=== PATIENT | female | born 1995 | race Caucasian/White ===

== ENCOUNTER 2017-02-14 00:51 | Emergency (ER) | payer BC ==
[~2017-02-14] VITALS: Ht 157.5 cm; Wt 63.5 kg
[2017-02-14 01:20] VITALS: BP 113/67
--- NOTE | 2017-02-14 01:39 | ED.ADGEN ---
Past Medical History Past Medical History: No Pertinent History Past Surgical History: Cholecystectomy Additional Past Surgical Histo: wisdom teeth Alcohol Use: Occasionally Drug Use: None Adult General Chief Complaint Chief Complaint: CLAVICLE INJURY HPI HPI Patient is a 22 year old woman, with no significant past no history, who presents to the emergency department with a complaint of left clavicle pain, with pain that shoots into the left arm. Patient states that at approximately 10 :30 tonight, she left forehead, and struck her clavicle against her significant other's knee. She states that she mainly spirits pain and some swelling, pain she describes as sharp and radiating into her left shoulder and side, states she is moving her upper extremity without issue, and did not strike her upper extremity, her head or neck. She states that she did use ice at home, did not take any medication. She denies any weakness, is complaining of tingling that does extend into the arm and then down to the fingers. She denies any other injuries, any previous injuries, any chest pain, shortness breath or other complaints. Review of Systems Review of Systems Constitutional: Denies fever or chills. [] Eyes: Denies change in visual acuity. [] HENT: Denies nasal congestion or sore throat. [] Respiratory: Denies cough or shortness of breath. [] Cardiovascular: Denies chest pain or edema. [] GI: Denies abdominal pain, nausea, vomiting, bloody stools or diarrhea. [] : Denies dysuria. [] Musculoskeletal: Denies back pain, complaining of pain in the left clavicle, with shooting pains and tingling extending into the left upper extremity Integument: Denies rash. [] Neurologic: Denies headache, focal weakness or sensory changes. [] Endocrine: Denies polyuria or polydipsia. [] Lymphatic: Denies swollen glands. [] Psychiatric: Denies depression or anxiety. [] Current Medications Current Medications Current Medications Medications (Trade) Dose Ordered Sig/Yudy Start Time Stop Time Status Last Admin Dose Admin Naproxen (Naprosyn) 500 mg 1X ONCE 02/14/17 02:30 02/14/17 02:31 02/14/17 02:16 500 MG Allergies Allergies Allergies Coded Allergies Type Severity Reaction Last Updated Verified No Known Drug Allergies 08/21/15 No Physical Exam Physical Exam Constitutional: Well developed, well nourished, no acute distress, non-toxic appearance. [] HENT: Normocephalic, atraumatic, bilateral external ears normal, oropharynx moist, no oral exudates, nose normal. [] Eyes: PERRLA, EOMI, conjunctiva normal, no discharge. [] Neck: Normal range of motion, no midline or paraspinal tenderness, supple, no stridor. [] Cardiovascular:Heart rate regular rhythm, no murmur, S1, S2, no rubs or gallops. [] Lungs & Thorax: Bilateral breath sounds clear to auscultation, no wheezing, rhonchi, rales. No chest or crepitus or tenderness. Patient with ecchymosis noted in the midclavicular region on the left, tenderness to palpation over this area. [] Abdomen: Bowel sounds normal, soft, no tenderness, no rebound, rigidity, no guarding, no masses, no pulsatile masses. [] Skin: Warm, dry, no erythema, no rash. [] Back: No midline or paraspinal tenderness, no scapular, no CVA tenderness. [] Extremities: No tenderness, no cyanosis, no clubbing, ROM intact, no edema. [] Full range of motion without difficulty or pain. No bony point tenderness in the left upper extremity. Neurologic: Alert and oriented X 3, normal motor function, normal sensory function, no focal deficits noted. [] Psychologic: Affect normal, judgement normal, mood normal. [] Current Patient Data Vital Signs Vital Signs Date Time Temp Pulse Resp B/P (MAP) Pulse Ox O2 Delivery O2 Flow Rate FiO2 02/14/17 01:20 98.3 104 11 98 Room Air 98.3 Lab Values Laboratory Tests Test 02/14/17 01:18 POC Urine HCG, Qualitative Hcg negative (Negative) EKG EKG Not indicated.[] Radiology/Procedures Radiology/Procedures X-ray: Bilateral clavicles: No fracture or subluxation identified, no soft tissue or bony abnormalities. As interpreted by me. Course & Med Decision Making Course & Med Decision Making Pertinent Labs and Imaging studies reviewed. (See chart for details) Patient with ecchymosis noted over the midclavicular region, is tender in this area, but no crepitus or deformity identified. X-rays obtained of the clavicles , does not reveal any evidence of bony abnormalities. As stated patient has full range of motion of the upper extremity, no other abnormalities identified, I did discuss with patient that symptoms are consistent with a contusion, they may be causing this "stinging" sensation along the upper extremity, with no evidence of underlying abnormalities. Recommend ice, rest, and use of anti- inflammatory medications, patient was given naproxen in the ED. We discussed concerning symptoms that prompt return to the emergency department, and follow- up with her primary care provider. Patient voiced understanding and agreement, discharged home in stable condition with instructions and precautions as stated. Dragon Disclaimer Dragon Disclaimer This electronic medical record was generated, in whole or in part, using a voice recognition dictation system. Departure Impression: Primary Impression: Clavicle pain Disposition: HOME, SELF-CARE Condition: IMPROVED DANA CAREY DO Feb 14, 2017 01:39
[2017-02-14] MEDS ORDERED: NAPROXEN 500 MG TABLET PO ONE (02:30)
--- NOTE | 2017-02-14 08:01 | RAD ---
Two-view study of clavicles bilateral exam History: Trauma and pain. Left clavicle: No acute fracture or osteolytic process or AC joint separation is seen. Right clavicle: No acute fracture or osteolytic process or AC joint separation is seen. IMPRESSION: No acute fracture.
== END 2017-02-14 02:34 | disposition home or self-care (01) ==
LOC: ER 00:51
DX: S40.012A Contusion of left shoulder, initial encounter (principal); W50.0XXA Accidental hit or strike by another person, initial encounter; Y93.89 Activity, other specified; Y92.89 Other specified places as the place of occurrence of the external cause; Y99.8 Other external cause status
CPT/HCPCS: 73000; 81025; 99284

== ENCOUNTER → 2017-05-26 | Day surgery (SDC) | payer OTHER, BC ==
[~2017-05-26] MED LIST: HYDROmorphone 2 MG/ML VIAL IV; LIDOCAINE 1% PF 2 ML VIAL. ID; LIDOCAINE 2% 100 MG/5 ML SYRINGE.; MORPHINE SULFATE 2 MG/ML DISP.SYRIN. IV; ONDANSETRON PF 4 MG/2 ML VIAL. IV; PROCHLORPERAZINE 10 MG/2 ML VIAL. IV; PROPOFOL 40 ML IV; fentaNYL PF VIAL 100 MCG/2 ML VIAL IV
[2017-05-26] MEDS: IV RINGERS,LACTATED 1000ML 1,000 ML IV (06:37)
[2017-05-26 06:51] LABS: NEG OBC UR NEG; POS OBC UR POS; U PREG PATIENT NEGATIVE (NEG)
== END | disposition home or self-care (01) ==
LOC: ENDOS 05:55
DX: K31.89 Other diseases of stomach and duodenum (principal); K29.50 Unspecified chronic gastritis without bleeding; F41.9 Anxiety disorder, unspecified; Z90.49 Acquired absence of other specified parts of digestive tract; Z88.6 Allergy status to analgesic agent
CPT/HCPCS: 43239; 81025; 88305; J2704

== ENCOUNTER → 2017-06-11 | Outpatient (CLI) | payer OTHER | END | disposition home or self-care (01) | LOC: NM 10:53 | DX: K30 Functional dyspepsia (principal); R11.0 Nausea | CPT/HCPCS: 78264; A9541 ==

== ENCOUNTER 2017-07-19 08:35 | Emergency (ER) | payer OTHER, BC ==
[2017-07-19] MEDS: ONDANSETRON ODT 4 MG TAB.RAPDIS. PO (09:04)
== END 2017-07-19 10:28 | disposition home or self-care (01) ==
LOC: ER 08:35
DX: R05 Cough (principal); R11.10 Vomiting, unspecified
CPT/HCPCS: 71046; 99284; Q0162

== ENCOUNTER → 2018-02-17 | Outpatient (CLI) | payer OTHER ==
[2017-07-19 08:40] VITALS: BP 106/61
[~2018-02-17] MED LIST changes: -HYDROmorphone 2 MG/ML VIAL IV; -LIDOCAINE 1% PF 2 ML VIAL. ID; -LIDOCAINE 2% 100 MG/5 ML SYRINGE.; +MELA3TAB2 PO; -MORPHINE SULFATE 2 MG/ML DISP.SYRIN. IV; +OMEP20TA8 PO; -ONDANSETRON PF 4 MG/2 ML VIAL. IV; -PROCHLORPERAZINE 10 MG/2 ML VIAL. IV; -PROPOFOL 40 ML IV; -fentaNYL PF VIAL 100 MCG/2 ML VIAL IV
--- NOTE | 2018-02-17 13:11 | RAD ---
MRCP compared to CT scan of the abdomen and pelvis dated July 06, 2005 for worsening abdominal pain status post cholecystectomy 2 years ago. TECHNIQUE: Multiplanar multisequence MR imaging of the abdomen is performed including extreme T2-weighted MR cholangiogram and 3-D volume rendered images of the biliary tree. FINDINGS: There are postsurgical changes of prior cholecystectomy. No intra or extrahepatic biliary ductal dilatation is seen. No biliary filling defects are identified. There is a tiny simple cyst within the left lobe of the liver, measuring less than 1 cm. No other liver parenchymal abnormality is are identified. No signal loss within the hepatic parenchyma with out of phase imaging. The pancreas is normal in appearance. No pancreatic ductal dilatation is seen. The bilateral adrenal glands and bilateral kidneys are also normal in appearance. Spleen is normal. A small accessory splenule is seen anteriorly. Visualized hollow viscus structures are grossly unremarkable. No pathologic lymphadenopathy is seen. No free or loculated fluid collections are present. No soft tissue or osseous abnormalities are seen. IMPRESSION: 1. Postsurgical changes of cholecystectomy, with no discernible abdominal pathology. 2. Small accessory splenule. Electronically signed by: Jose Vizcaino MD (02/17/2018 1:07 PM) [facility]
== END | disposition home or self-care (01) ==
LOC: MRI 07:52
PROVIDERS: ATTEND Internal Medicine Gastroenterology
DX: D73.89 Other diseases of spleen (principal); Z98.890 Other specified postprocedural states; Z90.49 Acquired absence of other specified parts of digestive tract
CPT/HCPCS: 74181

== ENCOUNTER 2018-03-07 17:15 | Emergency (ER) | payer OTHER ==
[~2018-03-07] VITALS: Ht 157.5 cm; Wt 52.2 kg
[2018-03-07 18:43] LABS: BILIRUBIN,URINE NEGATIVE (NEG); CLARITY,URINE CLEAR; COLOR,URINE YELLOW; NITRITE,URINE NEGATIVE (NEG); PH,URINE 6.5; PROTEIN,URINE NEGATIVE (NEG-TRACE)
[2018-03-07 18:46] LABS: BASO % 1 % (0-3); EOS # 0.1 x10^3/uL (0.0-0.7); EOS % 1 % (0-3); HEMATOCRIT 36.5 % (36.0-47.0); HEMOGLOBIN 12.5 g/dL (12.0-15.5); LYMPH % 23 % (24-48); MEAN CORPUSCULAR HEMOGLOBIN 31 pg (25-35); MEAN CORPUSCULAR HGB CONC 34 g/dL (31-37); MEAN CORPUSCULAR VOLUME 91 fL (79-100); MONO # 0.6 x10^3/uL (0.0-1.1); MONO % 13 % (0-9); NEUT # 2.7 x10^3uL (1.8-7.7); NEUT % 62 % (31-73); PLATELET COUNT 211 x10^3/uL (140-400); RED BLOOD COUNT 4.03 x10^6/uL (3.50-5.40); RED CELL DISTRIBUTION WIDTH 12.6 % (11.5-14.5); WHITE BLOOD COUNT 4.3 x10^3/uL (4.0-11.0)
[2018-03-07 18:53] LABS: BACTERIA,URINE MODERATE /HPF (0-FEW); RBC,URINE OCC /HPF (0-2); SQUAMOUS EPITHELIAL CELL,UR MOD /LPF; WBC,URINE OCC /HPF (0-4); YEAST,URINE PRESENT /HPF
[2018-03-07 18:59] LABS: CALCIUM 9.1 mg/dL (8.5-10.1); CREATININE 0.6 mg/dL (0.6-1.0); GFR 121.8; POTASSIUM 3.8 mmol/L (3.5-5.1)
[2018-03-07] MEDS ORDERED: fentaNYL PF VIAL 100 MCG/2 ML VIAL IV ONE ×2 (19:00→20:15)
[2018-03-07] MEDS ORDERED: DICYCLOMINE 20 MG/2 ML AMPUL. IM ONE (19:00)
[2018-03-07] MEDS ORDERED: ONDANSETRON PF 4 MG/2 ML VIAL. IV ONE (19:00)
[2018-03-07 19:03] LABS: ALBUMIN 3.7 g/dL (3.4-5.0); ALBUMIN/GLOBULIN RATIO 1.2 (1.0-1.7); TOTAL BILIRUBIN 0.1 mg/dL (0.2-1.0); TOTAL PROTEIN 6.9 g/dL (6.4-8.2)
[2018-03-07] MEDS ORDERED: DICY10CA3 PO (19:58)
--- NOTE | 2018-03-07 19:58 | PHYS DOC ---
Past Medical History Past Medical History: Other Additional Past Medical Histor: gastroporesis Past Surgical History: Cholecystectomy Additional Past Surgical Histo: wisdom teeth Alcohol Use: Rarely Drug Use: None Adult General Chief Complaint Chief Complaint: ABDOMINAL PAIN HPI HPI 23-year-old female presents to ER with complaints of upper abdominal pain which started around 4 PM today. Patient reports she has history of chronic abdominal pain due to gastroparesis. Patient reports she has had intermittent nausea today denying any vomiting episodes. Patient denies fever, urinary symptoms, or vaginal symptoms. Patient reports she has had diarrhea today but reports this is chronic in nature with no acute changes. Patient reports she had an ERCP and is scheduled for colonoscopy on 03/23/18 her ongoing abdominal pain and issues. Review of Systems Review of Systems Constitutional: Denies fever or chills. Denies fatigue Eyes: Denies change in visual acuity, redness, or eye pain [] HENT: Denies nasal congestion or sore throat [] Respiratory: Denies cough or shortness of breath [] Cardiovascular: Denies CP/palpitations GI: Denies vomiting. Reports diarrhea with intermittent blood in stools- reports this is chronic with no acute changes. Reports upper abd pain : Denies dysuria or hematuria [] Musculoskeletal: Denies back pain or joint pain [] Integument: Denies rash or skin lesions [] Neurologic: Denies headache, focal weakness or sensory changes. Denies dizziness /lightheadedness All other systems were reviewed and found to be within normal limits, except as documented in this note. Current Medications Current Medications Current Medications Medications (Trade) Dose Ordered Sig/Yudy Start Time Stop Time Status Last Admin Dose Admin Dicyclomine HCl (Bentyl) 20 mg 1X ONCE 03/07/18 19:00 03/07/18 19:01 DC 03/07/18 18:55 20 MG Fentanyl Citrate (Fentanyl 2ml Vial) 25 mcg 1X ONCE 03/07/18 20:15 03/07/18 20:16 DC 03/07/18 20:09 25 MCG Ondansetron HCl (Zofran) 4 mg 1X ONCE 03/07/18 19:00 03/07/18 19:01 DC 03/07/18 18:57 4 MG Allergies Allergies Allergies Coded Allergies Type Severity Reaction Last Updated Verified morphine Allergy Intermediate 05/26/17 Yes Physical Exam Physical Exam Constitutional: Well developed, well nourished, no acute distress, non-toxic appearance. [] HENT: Normocephalic, atraumatic, mucous membranes pink/moist, nose normal. [] Eyes: pupils equal, conjunctiva normal, no discharge. [] Neck: Normal range of motion, no tenderness, supple Cardiovascular:Heart rate regular rhythm, no murmur [] Lungs & Thorax: Bilateral breath sounds clear to auscultation. Resp. equal/ nonlabored Abdomen: Bowel sounds normal, soft- no rigidity or distention, diffuse tenderness on palpation in upper bilateral sides of abdomen, no masses, no pulsatile masses. No rebound tenderness Skin: Warm, dry, no erythema, no rash. [] Back: No tenderness, no CVA tenderness. [] Extremities: No tenderness, no cyanosis, no clubbing, ROM intact, no edema. [] Neurologic: Alert and oriented X 3, normal motor function, normal sensory function, no focal deficits noted. [] Psychologic: Affect normal, judgement normal, mood normal. [] Current Patient Data Vital Signs Vital Signs Date Time Temp Pulse Resp B/P (MAP) Pulse Ox O2 Delivery O2 Flow Rate FiO2 03/07/18 20:30 18 97 Room Air 03/07/18 20:00 59 91/57 (68) 03/07/18 17:44 99.5 99.5 Lab Values Laboratory Tests Test 03/07/18 17:55 03/07/18 18:35 03/07/18 19:00 Urine Collection Type Unknown Urine Color Yellow Urine Clarity Clear Urine pH 6.5 Urine Specific [place] 1.025 Urine Protein Negative mg/dL (NEG-TRACE) Urine Glucose (UA) Negative mg/dL (NEG) Urine Ketones (Stick) Negative mg/dL (NEG) Urine Blood Negative (NEG) Urine Nitrite Negative (NEG) Urine Bilirubin Negative (NEG) Urine Urobilinogen Dipstick 1.0 mg/dL (0.2 mg/dL) Urine Leukocyte Esterase Negative (NEG) Urine RBC Occ /HPF (0-2) Urine WBC Occ /HPF (0-4) Urine Squamous Epithelial Cells Mod /LPF Urine Bacteria Moderate /HPF (0-FEW) Urine Mucus Marked /LPF Urine Yeast Present /HPF White Blood Count 4.3 x10^3/uL (4.0-11.0) Red Blood Count 4.03 x10^6/uL (3.50-5.40) Hemoglobin 12.5 g/dL (12.0-15.5) Hematocrit 36.5 % (36.0-47.0) Mean Corpuscular Volume 91 fL (79-100) Mean Corpuscular Hemoglobin 31 pg (25-35) Mean Corpuscular Hemoglobin Concent 34 g/dL (31-37) Red Cell Distribution Width 12.6 % (11.5-14.5) Platelet Count 211 x10^3/uL (140-400) Neutrophils (%) (Auto) 62 % (31-73) Lymphocytes (%) (Auto) 23 % (24-48) L Monocytes (%) (Auto) 13 % (0-9) H Eosinophils (%) (Auto) 1 % (0-3) Basophils (%) (Auto) 1 % (0-3) Neutrophils # (Auto) 2.7 x10^3uL (1.8-7.7) Lymphocytes # (Auto) 1.0 x10^3/uL (1.0-4.8) Monocytes # (Auto) 0.6 x10^3/uL (0.0-1.1) Eosinophils # (Auto) 0.1 x10^3/uL (0.0-0.7) Basophils # (Auto) 0.0 x10^3/uL (0.0-0.2) Sodium Level 139 mmol/L (136-145) Potassium Level 3.8 mmol/L (3.5-5.1) Chloride Level 104 mmol/L (98-107) Carbon Dioxide Level 24 mmol/L (21-32) Anion Gap 11 (6-14) Blood Urea Nitrogen 9 mg/dL (7-20) Creatinine 0.6 mg/dL (0.6-1.0) Estimated GFR (Cockcroft-Gault) 121.8 BUN/Creatinine Ratio 15 (6-20) Glucose Level 96 mg/dL (70-99) Calcium Level 9.1 mg/dL (8.5-10.1) Total Bilirubin 0.1 mg/dL (0.2-1.0) L Aspartate Amino Transferase (AST) 13 U/L (15-37) L Alanine Aminotransferase (ALT) 12 U/L (14-59) L Alkaline Phosphatase 64 U/L (46-116) Total Protein 6.9 g/dL (6.4-8.2) Albumin 3.7 g/dL (3.4-5.0) Albumin/Globulin Ratio 1.2 (1.0-1.7) Lipase 210 U/L (73-393) POC Urine HCG, Qualitative Hcg negative (Negative) Laboratory Tests 03/07/18 18:35 Laboratory Tests 03/07/18 18:35 Microbiology 03/07/18 Urine Culture - Final, Complete 03/07/18 Urine Culture Result 1 (FREDDY) - Final, Complete EKG EKG [] Radiology/Procedures Radiology/Procedures [] Course & Med Decision Making Course & Med Decision Making Pertinent Labs reviewed. (See chart for details) 1944: On re-evaluation pt reports her sxs have improved since receiving tx in ER. Discussed test results with pt and her - WBCs NL at 4.3 no lt shift; lipase 210 NL; UCG neg. and UA unremarkable- negative for ketones/leuks/blood. Discussed with improved sxs plans were for home discharge as pt has had similar pain in past. No imaging done with pt feeling comfortable with this. Pt is in no visible distress and remains nontoxic in appearance. Pt will be provided with Rx for Bentyl and reports she has nausea medication at home. Pt to f/u with Dr. Grayson her GI doctor in next 2-3 days if sxs worsens or with concerns. Discharge instructions discussed and education provided on s&s to return to ER for. Pt requested additional dose of pain medication prior to discharge. Staff Physician Addendum: I was working in the ER during the course of this patient's visit. I was available for consultation as needed, but I was not directly involved in the care of this patient. Dragon Disclaimer Dragon Disclaimer This electronic medical record was generated, in whole or in part, using a voice recognition dictation system. Departure Departure Impression: Primary Impression: Abdominal pain Disposition: 01 HOME, SELF-CARE Condition: STABLE Referrals: RADHA EAGLE MD (PCP) Patient Instructions: Abdominal Pain Additional Instructions: [place] diet for next 1-2 days and avoid spicy/acidic foods. Follow-up with your GI doctor in next 2-3 days if symptoms persist, worsen, or with concerns. Scripts Dicyclomine Hcl (DICYCLOMINE HCL) 10 Mg Capsule 10 MG PO QID PRN for PAIN, #14 CAP 0 Refills Prov: ASHLEY ECHOLS APRN 03/07/18 ASHLEY ECHOLS APRN Mar 07, 2018 19:58 HANNA LEIVA MD Mar 11, 2018 06:31
[2018-03-07 20:00] VITALS: BP 91/57
== END 2018-03-07 20:35 | disposition home or self-care (01) ==
LOC: ER 17:15
DX: G89.29 Other chronic pain (principal); R10.11 Right upper quadrant pain; R10.12 Left upper quadrant pain; K31.84 Gastroparesis; Z90.49 Acquired absence of other specified parts of digestive tract; Z88.5 Allergy status to narcotic agent
CPT/HCPCS: 36415; 80053; 81001; 81025; 83690; 85025; 87086; 96372; 96374; 96375; 96376; 99284; J0500; J2405; J3010

== ENCOUNTER → 2018-03-23 | Day surgery (SDC) | payer OTHER ==
[~2018-03-23] MED LIST changes: +DICY10CA3 PO; +PROC25SU21 RC; +PROPOFOL 40 ML IV ONE; +[UNRECOGNIZED DRUG - CODE] PO
[2018-03-23] MEDS: IV RINGERS,LACTATED 1000ML 1,000 ML IV SCH ×2 (08:10→08:11)
[2018-03-23 09:20] LABS: U PREG PATIENT NEGATIVE (NEG)
[2018-03-23 09:27] VITALS: BP 100/64
--- NOTE | 2018-03-23 11:04 | HP ---
ADMIT DATE: 03/23/2018 HISTORY OF PRESENT ILLNESS: A 23-year-old female with past medical history significant for GERD, gastroparesis, seen with worsening diarrhea and right lower quadrant abdominal pain, previously undergone cholecystectomy for symptomatic cholelithiasis. FAMILY HISTORY: Positive for Crohn disease in multiple family members. Her weight has been stable during this time. No extraintestinal manifestations of IBD are noted. With continued issues, she is here for colonoscopy. PAST MEDICAL HISTORY: Gastroparesis, reflux, diarrhea. ALLERGIES: MORPHINE. MEDICATIONS: Include dicyclomine, erythromycin, melatonin, prochlorperazine. FAMILY AND SOCIAL HISTORY: Significant for Crohn's in multiple family members. She is a social drinker, nonsmoker. PAST SURGICAL HISTORY: Cholecystectomy. REVIEW OF SYSTEMS: Per records. PHYSICAL EXAMINATION: GENERAL: Reveals a well-nourished, well-developed female. VITAL SIGNS: Temperature is 97.6, pulse 94, respirations 20. HEENT: Normocephalic and atraumatic. Pupils and extraocular muscles are not tested. Sclerae are icteric. NECK: Supple. LUNGS: Clear. CARDIOVASCULAR: Reveals an S1, S2 without S3, S4 or appreciable murmur. ABDOMEN: Soft abdomen, normal bowel sounds. Right lower quadrant tenderness to palpation. EXTREMITIES: Reveal no cyanosis, clubbing or edema. IMPRESSION: Right lower quadrant abdominal pain with diarrhea, etiology is to be determined. Differential includes irritable bowel syndrome, inflammatory bowel disease, collagenous colitis among others. Therefore, recommend colonoscopy to further assess. Risks and benefits discussed. The patient is willing to proceed. PAULETTE PRESTON MD DR: JUANITA/dalton JOB#: [id number] / [id number] ecc RECORDS, MEDICAL
--- NOTE | 2018-03-25 18:07 | PATHOLOGY ---
[facility] Accession Number: [id number] . 01 Material submitted: . RANDOM COLON BX . 01 Clinical history: . Abdominal pain . 02 Diagnosis: Colonic mucosa, random colon biopsies: - No significant pathologic abnormalities. . (JPM/at;03/25/2018) QTA/03/25/2018 . 02 Comment: Sections of the random colon biopsy revealed multiple segments of colonic mucosa containing a few mucosal - associated lymphoid aggregates. There is no evidence of a chronic destructive colitis, lymphocytic colitis, or collagenous colitis. . (JPM/at;03/25/2018) . 02 Electronically signed: . Chon Jack MD, Pathologist NPI- [id number] . 01 Gross description: . Received in formalin labeled "Simmons, Fátima, random colon BX," are multiple segments of land soft tissue measuring 1.7 x 0.8 x 0.1 cm in aggregate dimensions. The specimen is filtered and entirely submitted in cassette A1. (TSD; 03/23/2018) TOB/TOB . 02 Pathologist provided ICD-10: R10.9 . 02 CPT . 537486 Specimen Comment: A courtesy copy of this report has been sent to Specimen Comment: [phone], . Specimen Comment: Report sent to / DR EAGLE Performed at: 01 [facility] [address], [place] [id number] MD Gordo Gan MD Phone: [phone] Performed at: 02 [facility] [address] [place], [place] [id number] MD Chon Jack MD Phone: [phone]
== END | disposition home or self-care (01) ==
LOC: ENDOS 07:33
PROVIDERS: ATTEND Internal Medicine Gastroenterology
DX: K64.0 First degree hemorrhoids (principal); K21.9 Gastro-esophageal reflux disease without esophagitis; K31.84 Gastroparesis; Z90.49 Acquired absence of other specified parts of digestive tract; Z72.89 Other problems related to lifestyle; Z88.5 Allergy status to narcotic agent; Z83.79 Family history of other diseases of the digestive system; Z79.2 Long term (current) use of antibiotics; Z79.899 Other long term (current) drug therapy
CPT/HCPCS: 45380; 81025; 88305; J2704

== ENCOUNTER → 2018-04-05 | Outpatient (CLI) | payer OTHER ==
[2018-03-23 09:27] VITALS: BP 100/64
[~2018-04-05] MED LIST changes: +BARIUM SULFATE 60% 355 ML SUSP PO ONE; -PROPOFOL 40 ML IV ONE
--- NOTE | 2018-04-05 16:28 | RAD ---
Small bowel series, 04/05/2018: History: Abdominal pain The preliminary abdominal image demonstrates cholecystectomy clips in the right upper quadrant. The abdominal gas pattern is unremarkable. Serial abdominal digital radiographs and fluoroscopic spot imaging was performed following oral ingestion of liquid barium. 0.9 minutes of fluoroscopy time was utilized. 3 fluoroscopic spot images were recorded. The small bowel loops are of normal caliber with no evidence of thickening of their folds. There was normal transit of the barium through the small bowel into the colon. The terminal ileum is unremarkable. IMPRESSION: No significant small bowel abnormality is detected.
== END | disposition home or self-care (01) ==
LOC: RAD 09:49
PROVIDERS: ATTEND Internal Medicine Gastroenterology
DX: R10.84 Generalized abdominal pain (principal); R19.7 Diarrhea, unspecified; Z90.49 Acquired absence of other specified parts of digestive tract
CPT/HCPCS: 74250

== ENCOUNTER 2018-06-26 22:39 | Emergency (ER) | payer OTHER ==
[~2018-06-26] VITALS: Ht 154.9 cm; Wt 54.0 kg
[~2018-06-26 22:39] MED LIST changes: -BARIUM SULFATE 60% 355 ML SUSP PO ONE
[2018-06-26] MEDS ORDERED: MORPHINE SULFATE 4 MG/ML VIAL. IV ONE (23:15)
[2018-06-26] MEDS ORDERED: IV NORMAL SALINE 1000ML BAG 1,000 ML IV ONE (23:15)
[2018-06-26 23:20] LABS: BILIRUBIN,URINE NEGATIVE (NEG); CLARITY,URINE CLEAR; COLOR,URINE YELLOW; NITRITE,URINE NEGATIVE (NEG); PH,URINE 6.5; PROTEIN,URINE NEGATIVE (NEG-TRACE); UROBILINOGEN,URINE 0.2 mg/dL (0.2 mg/dL)
[2018-06-26 23:28] LABS: BASO % 0 % (0-3); EOS # 0.2 x10^3/uL (0.0-0.7); EOS % 2 % (0-3); HEMATOCRIT 44.3 % (36.0-47.0); HEMOGLOBIN 15.2 g/dL (12.0-15.5); LYMPH % 7 % (24-48); MEAN CORPUSCULAR HEMOGLOBIN 32 pg (25-35); MEAN CORPUSCULAR HGB CONC 34 g/dL (31-37); MEAN CORPUSCULAR VOLUME 92 fL (79-100); MONO # 0.9 x10^3/uL (0.0-1.1); MONO % 7 % (0-9); NEUT # 11.4 x10^3uL (1.8-7.7); NEUT % 84 % (31-73); PLATELET COUNT 258 x10^3/uL (140-400); RED BLOOD COUNT 4.83 x10^6/uL (3.50-5.40); RED CELL DISTRIBUTION WIDTH 13.1 % (11.5-14.5); WHITE BLOOD COUNT 13.5 x10^3/uL (4.0-11.0)
[2018-06-26 23:29] LABS: BACTERIA,URINE FEW /HPF (0-FEW); CALCIUM 9.4 mg/dL (8.5-10.1); CREATININE 0.8 mg/dL (0.6-1.0); GFR 87.4; POTASSIUM 3.8 mmol/L (3.5-5.1); RBC,URINE 0 /HPF (0-2); SQUAMOUS EPITHELIAL CELL,UR FEW /LPF
[2018-06-26] MEDS ORDERED: ONDANSETRON PF 4 MG/2 ML VIAL. IV ONE (23:30)
[2018-06-26] MEDS ORDERED: METOCLOPRAMIDE HCL 10 MG/2 ML VIAL. IV ONE (23:30)
[2018-06-26] MEDS ORDERED: fentaNYL PF VIAL 100 MCG/2 ML VIAL IV ONE (23:30)
--- NOTE | 2018-06-26 23:33 | PHYS DOC ---
Past Medical History Past Medical History: Other Additional Past Medical Histor: gastroporesis Past Surgical History: Cholecystectomy Additional Past Surgical Histo: wisdom teeth Alcohol Use: Rarely Drug Use: None Adult General Chief Complaint Chief Complaint: ABDOMINAL PAIN HPI HPI Patient is a 23 year old female who presents with epigastric abdominal pain, nausea, and vomiting that began at 1600 today. The pain is sharp , cramping in nature and similar to past episodes associated with gastroparesis symptoms but increased in severity. She reports taking Bentyl and Compazine without relief of symptoms. She reports a regular bowel movement and passing gas today. She denies hematemesis. Denies current fever, chills, diarrhea or headache.[] Review of Systems Review of Systems Constitutional: Denies fever or chills [] Eyes: Denies change in visual acuity, redness, or eye pain [] HENT: Denies nasal congestion or sore throat [] Respiratory: Denies cough or shortness of breath [] Cardiovascular: No additional information not addressed in HPI [] GI: reports abdominal pain, nausea, and vomiting. Denies bloody stools or diarrhea [] : Denies dysuria or hematuria [] Musculoskeletal: Denies back pain or joint pain [] Integument: Denies rash or skin lesions [] Neurologic: Denies headache, focal weakness or sensory changes [] Endocrine: Denies polyuria or polydipsia [] All other systems were reviewed and found to be within normal limits, except as documented in this note. Current Medications Current Medications Current Medications Medications (Trade) Dose Ordered Sig/[facility] Start Time Stop Time Status Last Admin Dose Admin Fentanyl Citrate (Fentanyl 2ml Vial) 50 mcg 1X ONCE 06/26/18 23:30 06/26/18 23:41 DC 06/26/18 23:33 50 MCG Ketamine HCl (Ketamine) 10 mg 1X ONCE 06/27/18 00:30 06/27/18 00:31 DC 06/27/18 00:41 10 MG Metoclopramide HCl (Reglan Vial) 10 mg 1X ONCE 06/26/18 23:30 06/26/18 23:31 DC 06/26/18 23:33 10 MG Morphine Sulfate (Morphine Sulfate) 4 mg 1X ONCE 06/26/18 23:15 06/26/18 23:27 DC Ondansetron HCl (Zofran) 4 mg 1X ONCE 06/26/18 23:30 06/26/18 23:31 DC 06/26/18 23:34 4 MG Sodium Chloride 1,000 ml @ 1,000 mls/hr 1X ONCE 06/26/18 23:15 06/27/18 00:14 DC 06/26/18 23:34 1,000 MLS/HR Allergies Allergies Allergies Coded Allergies Type Severity Reaction Last Updated Verified morphine Allergy Intermediate 03/23/18 Yes Physical Exam Physical Exam Constitutional: Well developed, well nourished, mild acute distress, non-toxic appearance. [] HENT: Normocephalic, atraumatic, bilateral external ears normal, oropharynx moist, no oral exudates, nose normal. [] Eyes: PERRLA, EOMI, conjunctiva normal, no discharge. [] Neck: Normal range of motion, no tenderness, supple, no stridor. [] Cardiovascular: Tachycardia, regular rhythm, no murmur [] Lungs & Thorax: Bilateral breath sounds clear to auscultation [] Abdomen: Bowel sounds normal, soft, mild epigastric tenderness, no masses, no pulsatile masses. [] Skin: Warm, dry, no erythema, no rash. [] Back: No tenderness, no CVA tenderness. [] Extremities: No tenderness, no cyanosis, no clubbing, ROM intact, no edema. [] Neurologic: Alert and oriented X 3, normal motor function, normal sensory function, no focal deficits noted. [] Psychologic: Affect normal, judgement normal, mood normal. [] Current Patient Data Vital Signs Vital Signs Date Time Temp Pulse Resp B/P (MAP) Pulse Ox O2 Delivery O2 Flow Rate FiO2 06/27/18 00:49 99 16 109/73 (85) 100 Room Air 06/26/18 22:47 98.3 98.3 Lab Values Laboratory Tests Test 06/26/18 22:56 06/26/18 23:00 White Blood Count 13.5 x10^3/uL (4.0-11.0) H Red Blood Count 4.83 x10^6/uL (3.50-5.40) Hemoglobin 15.2 g/dL (12.0-15.5) Hematocrit 44.3 % (36.0-47.0) Mean Corpuscular Volume 92 fL (79-100) Mean Corpuscular Hemoglobin 32 pg (25-35) Mean Corpuscular Hemoglobin Concent 34 g/dL (31-37) Red Cell Distribution Width 13.1 % (11.5-14.5) Platelet Count 258 x10^3/uL (140-400) Neutrophils (%) (Auto) 84 % (31-73) H Lymphocytes (%) (Auto) 7 % (24-48) L Monocytes (%) (Auto) 7 % (0-9) Eosinophils (%) (Auto) 2 % (0-3) Basophils (%) (Auto) 0 % (0-3) Neutrophils # (Auto) 11.4 x10^3uL (1.8-7.7) H Lymphocytes # (Auto) 1.0 x10^3/uL (1.0-4.8) Monocytes # (Auto) 0.9 x10^3/uL (0.0-1.1) Eosinophils # (Auto) 0.2 x10^3/uL (0.0-0.7) Basophils # (Auto) 0.0 x10^3/uL (0.0-0.2) Urine Collection Type Unknown Urine Color Yellow Urine Clarity Clear Urine pH 6.5 Urine Specific [place] 1.015 Urine Protein Negative mg/dL (NEG-TRACE) Urine Glucose (UA) Negative mg/dL (NEG) Urine Ketones (Stick) Negative mg/dL (NEG) Urine Blood Negative (NEG) Urine Nitrite Negative (NEG) Urine Bilirubin Negative (NEG) Urine Urobilinogen Dipstick 0.2 mg/dL (0.2 mg/dL) Urine Leukocyte Esterase Negative (NEG) Urine RBC 0 /HPF (0-2) Urine WBC 1-4 /HPF (0-4) Urine Squamous Epithelial Cells Few /LPF Urine Bacteria Few /HPF (0-FEW) Urine Mucus Mod /LPF Sodium Level 141 mmol/L (136-145) Potassium Level 3.8 mmol/L (3.5-5.1) Chloride Level 101 mmol/L (98-107) Carbon Dioxide Level 28 mmol/L (21-32) Anion Gap 12 (6-14) Blood Urea Nitrogen 8 mg/dL (7-20) Creatinine 0.8 mg/dL (0.6-1.0) Estimated GFR (Cockcroft-Gault) 87.4 BUN/Creatinine Ratio 10 (6-20) Glucose Level 110 mg/dL (70-99) H Calcium Level 9.4 mg/dL (8.5-10.1) Total Bilirubin 0.5 mg/dL (0.2-1.0) Aspartate Amino Transferase (AST) 14 U/L (15-37) L Alanine Aminotransferase (ALT) 17 U/L (14-59) Alkaline Phosphatase 64 U/L (46-116) Total Protein 8.1 g/dL (6.4-8.2) Albumin 4.3 g/dL (3.4-5.0) Albumin/Globulin Ratio 1.1 (1.0-1.7) Lipase 135 U/L (73-393) POC Urine HCG, Qualitative Hcg negative (Negative) Laboratory Tests 06/26/18 22:56 Laboratory Tests 06/26/18 22:56 EKG EKG [] Radiology/Procedures Radiology/Procedures [] Course & Med Decision Making Course & Med Decision Making Pt is a 23 year old female with past medical history of gastroparesis presents with symptoms similar to past episodes of bilateral upper quadrant abdominal pain, nausea, and vomiting. Rule out an infectious process. Increase motility with a trial of Reglan and treat her pain. Pertinent Labs and Imaging studies reviewed. (See chart for details) Plan CBC, CMP Reglan Pain management final plan pt better in er with above tx, labs overall good mild leukocytosis likely from vomiting, no lower quadrant ttp. tolerates po in er, she is feeling well enough to go homne. i dont think ct imaging necessary at this point. no clinical signs of obstruction [] Dragon Disclaimer Dragon Disclaimer This electronic medical record was generated, in whole or in part, using a voice recognition dictation system. Departure Departure Impression: Primary Impression: Abdominal pain Disposition: 01 HOME, SELF-CARE Condition: STABLE Referrals: RADHA EAGLE MD (PCP) HANNA LEIVA MD Jun 26, 2018 23:33
[2018-06-26 23:35] LABS: ALBUMIN 4.3 g/dL (3.4-5.0); ALBUMIN/GLOBULIN RATIO 1.1 (1.0-1.7); TOTAL BILIRUBIN 0.5 mg/dL (0.2-1.0); TOTAL PROTEIN 8.1 g/dL (6.4-8.2)
[2018-06-27] MEDS ORDERED: KETAMINE HCL IN NACL, ISO-OSM 50 MG/5 ML SYRINGE IV ONE (00:30)
[2018-06-27 00:49] VITALS: BP 109/73
[2018-06-27] MEDS ORDERED: PROC10TA57 PO (20:11)
[2018-06-27] MEDS ORDERED: ZOLP5TAB PO (20:11)
== END 2018-06-27 01:18 | disposition home or self-care (01) ==
LOC: ER 22:39
DX: R10.13 Epigastric pain (principal); R11.2 Nausea with vomiting, unspecified; D72.829 Elevated white blood cell count, unspecified; Z90.49 Acquired absence of other specified parts of digestive tract; Z88.5 Allergy status to narcotic agent
CPT/HCPCS: 36415; 80053; 81001; 81025; 83690; 85025; 96361; 96374; 96375; 99283; J2405; J2765; J3010; J7030

== ENCOUNTER 2018-06-27 17:38 | Inpatient (IN) | payer OTHER ==
[~2018-06-27] VITALS: Ht 154.9 cm; Wt 51.1 kg
[2018-06-27] MEDS ORDERED: PROC10TA57 PO (20:11)
[2018-06-27] MEDS ORDERED: ZOLP5TAB PO (20:11)
[2018-06-27] MEDS ORDERED: ONDANSETRON ODT 4 MG TAB.RAPDIS. PO PRN (21:00)
[2018-06-27] MEDS ORDERED: DICYCLOMINE HCL 10 MG CAPSULE PO PRN (21:00)
--- NOTE | 2018-06-27 21:13 | PDOC1 ---
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 Grayson for gastroparesis, rather unclear etiology. Has been having nausea vomiting for the past few days and today vomited some mild hematemesis. She called Dr. Grayson's office and was advised to come for direct admission. She reported some diarrhea but that has since abated. She has no appetite and is not interested in food. He had an EGD 1 year ago some hiatal hernia. She is occasional drinker not a smoker. Past surgical history cholecystectomy Needing some pain meds tonight \\MOther at beside Past Medical History GI: GERD, Other (gastroparesis) Past Surgical History Past Surgical History: Cholecystectomy Family History Family History: No Significant Social History Smoke: No ALCOHOL: occassional Drugs: None Current Medications Current Medications Current Medications Dicyclomine HCl (Bentyl) 10 mg PRN QID PRN PO ABDOMINAL PAIN; Start 06/27/18 at 21:00 Zolpidem Tartrate (Ambien) 5 mg PRN QHS PRN PO INSOMNIA; Start 06/27/18 at 21: 00 Erythromycin (E-Mycin) 250 mg BID PO ; Start 06/27/18 at 22:00 Prochlorperazine Maleate (Compazine) 10 mg BID PO ; Start 06/27/18 at 22:00 Fentanyl Citrate (Fentanyl 2ml Vial) 50 mcg PRN Q2HR PRN IV PAIN; Start at 21:00 Oxycodone/ Acetaminophen (Percocet 5/325) 1 tab PRN Q4HRS PRN PO PAIN; Start at 21:00 Metoclopramide HCl (Reglan) 10 mg PRN BFRMEALHC PRN PO NAUSEA/VOMITING 2ND CHOICE; Start 06/27/18 at 21:00 Ondansetron HCl (Zofran) 4 mg PRN Q6HRS PRN IV NAUSEA/VOMITING 1ST CHOICE; Start 06/27/18 at 21:00 Ondansetron HCl (Zofran Odt) 4 mg PRN Q6HRS PRN PO NAUSEA/VOMITING 1ST CHOICE; Start 06/27/18 at 21:00 Prochlorperazine Edisylate (Compazine) 10 mg PRN Q6HRS PRN IV NAUSEA/VOMITING 2ND CHOICE; Start 06/27/18 at 21:00 Sodium Chloride 1,000 ml @ 100 mls/hr 1X ONCE IV ; Start 06/27/18 at 21:30; Stop 06/28/18 at 07:29 Active Scripts Active Dicyclomine Hcl 10 Mg Capsule 10 Mg PO QID PRN Reported Ambien (Zolpidem Tartrate) 5 Mg Tablet 5 Mg PO PRN QHS PRN Compazine (Prochlorperazine Maleate) 10 Mg Tablet 10 Mg PO BID Erythromycin Stearate 250 Mg Tablet 250 Mg PO BID Allergies Allergies: Coded Allergies: morphine (Verified Allergy, Intermediate, 03/23/18) ROS Review of System As per history of present illness, the rest of ROS 14 point negative Physical Exam General: Alert, Oriented X3, Cooperative, No acute distress HEENT: Atraumatic, PERRLA, EOMI Lungs: Clear to auscultation, Normal air movement Heart: S1S2, RRR, no thrills, no rubs, no gallops, no murmurs Cardiovascular: S1, S2 Breasts: Normal, Rt breast nml w/o mass, Lt breast nml w/o mass, Nipples normal Abdomen: Normal bowel sounds, Soft, No tenderness, No hepatosplenomegaly, No masses Rectal Exam: not examined PELVIC: Nml ext genitalia Extremities: No clubbing, No cyanosis, No edema, Normal pulses, No tenderness/ swelling Skin: No rashes, No breakdown, No significant lesion Neuro: Normal gait, Normal speech, Strength at 5/5 X4 ext, Normal tone, Sensation intact, Cranial nerves 3-12 NL, Reflexes 2+ Psych/Mental Status: Mental status NL, Mood NL VTE Prophylaxis Ordered VTE Prophylaxis Devices: Yes VTE Pharmacological Prophylaxi: Yes Assessment/Plan Assessment/Plan Gastroparesis attack -She is known to Dr. Grayson. I did not "reinvent the wheel". I'm unsure if she has had a gastric empty test done either inpatient or outpatient. I did order some basic labs, deferred any imaging for now. GI consult, liquid diet then ADA T Normal saline fluid 1 tonight I have reconciled home meds Diarrhea-abated Supprotive meds Dw mother too at bedside SABINE CHAMORRO MD Jun 27, 2018 21:13
[2018-06-27] MEDS ORDERED: IV NORMAL SALINE 1000ML BAG 1,000 ML IV ONE (21:30)
[2018-06-27] MEDS: ERYTHROMYCIN BASE 250 MG TABLET PO SCH (22:00)
[2018-06-27] MEDS: fentaNYL PF VIAL 100 MCG/2 ML VIAL IV PRN (22:22)
[2018-06-27] MEDS: ONDANSETRON PF 4 MG/2 ML VIAL. IV PRN (22:23)
[2018-06-27 22:33] VITALS: BP 122/50
[2018-06-27] MEDS: ZOLPIDEM 5 MG TABLET. PO PRN (23:17)
[2018-06-27] MEDS: PROCHLORPERAZINE 5 MG TABLET. PO SCH (23:18)
[2018-06-27 23:47] VITALS: BP 116/80
[2018-06-28] MEDS: fentaNYL PF VIAL 100 MCG/2 ML VIAL IV PRN ×6 (04:45→21:05)
[2018-06-28] MEDS: ONDANSETRON PF 4 MG/2 ML VIAL. IV PRN ×3 (04:45→18:25)
[2018-06-28 05:10] LABS: BASO % 0 % (0-3); EOS # 0.1 x10^3/uL (0.0-0.7); EOS % 2 % (0-3); HEMATOCRIT 34.3 % (36.0-47.0); HEMOGLOBIN 11.7 g/dL (12.0-15.5); LYMPH % 27 % (24-48); MEAN CORPUSCULAR HEMOGLOBIN 31 pg (25-35); MEAN CORPUSCULAR HGB CONC 34 g/dL (31-37); MEAN CORPUSCULAR VOLUME 91 fL (79-100); MONO # 0.4 x10^3/uL (0.0-1.1); MONO % 11 % (0-9); NEUT # 2.2 x10^3uL (1.8-7.7); NEUT % 60 % (31-73); PLATELET COUNT 178 x10^3/uL (140-400); RED BLOOD COUNT 3.78 x10^6/uL (3.50-5.40); RED CELL DISTRIBUTION WIDTH 12.7 % (11.5-14.5); WHITE BLOOD COUNT 3.6 x10^3/uL (4.0-11.0)
[2018-06-28 05:25] LABS: CREATININE 0.6 mg/dL (0.6-1.0); GFR 121.8; POTASSIUM 3.6 mmol/L (3.5-5.1); TOTAL BILIRUBIN 0.9 mg/dL (0.2-1.0)
[2018-06-28 07:00] VITALS: BP 105/47
[2018-06-28] MEDS: PROCHLORPERAZINE 10 MG/2 ML VIAL. IV PRN ×3 (08:11→22:05)
[2018-06-28] MEDS: PROCHLORPERAZINE 5 MG TABLET. PO SCH ×2 (08:22→21:05)
--- NOTE | 2018-06-28 08:48 | PDOC ---
PROGRESS NOTES History of Present Illness History of Present Illness Assessment/Plan Assessment/Plan Gastroparesis EXAC -She is known to Dr. Grayson. , CONSULTED Normal saline fluid 1 , IV FLUID SUPPORT home meds Diarrhea-abated Supprotive meds Dw mother at bedside 06/28 NO IMPROVEMENT, STILL VOMITED THIS AM Vitals Vitals Vital Signs Date Time Temp Pulse Resp B/P (MAP) Pulse Ox O2 Delivery O2 Flow Rate FiO2 06/28/18 08:12 Room Air 06/28/18 07:00 98.4 92 18 105/47 (66) 98 98.4 Physical Exam General: Alert, Oriented X3, Cooperative, No acute distress, mild distress Heart: Regular rate Lungs: Clear Abdomen: Normal bowel sounds, Soft, No tenderness, No hepatosplenomegaly, No masses Extremities: No clubbing, No cyanosis, No edema, Normal pulses, No tenderness/ swelling Skin: No rashes, No breakdown, No significant lesion Labs LABS Laboratory Tests Test 06/28/18 04:25 White Blood Count 3.6 x10^3/uL (4.0-11.0) Red Blood Count 3.78 x10^6/uL (3.50-5.40) Hemoglobin 11.7 g/dL (12.0-15.5) Hematocrit 34.3 % (36.0-47.0) Mean Corpuscular Volume 91 fL (79-100) Mean Corpuscular Hemoglobin 31 pg (25-35) Mean Corpuscular Hemoglobin Concent 34 g/dL (31-37) Red Cell Distribution Width 12.7 % (11.5-14.5) Platelet Count 178 x10^3/uL (140-400) Neutrophils (%) (Auto) 60 % (31-73) Lymphocytes (%) (Auto) 27 % (24-48) Monocytes (%) (Auto) 11 % (0-9) Eosinophils (%) (Auto) 2 % (0-3) Basophils (%) (Auto) 0 % (0-3) Neutrophils # (Auto) 2.2 x10^3uL (1.8-7.7) Lymphocytes # (Auto) 1.0 x10^3/uL (1.0-4.8) Monocytes # (Auto) 0.4 x10^3/uL (0.0-1.1) Eosinophils # (Auto) 0.1 x10^3/uL (0.0-0.7) Basophils # (Auto) 0.0 x10^3/uL (0.0-0.2) Sodium Level 140 mmol/L (136-145) Potassium Level 3.6 mmol/L (3.5-5.1) Chloride Level 105 mmol/L (98-107) Carbon Dioxide Level 23 mmol/L (21-32) Anion Gap 12 (6-14) Blood Urea Nitrogen 8 mg/dL (7-20) Creatinine 0.6 mg/dL (0.6-1.0) Estimated GFR (Cockcroft-Gault) 121.8 BUN/Creatinine Ratio 13 (6-20) Glucose Level 78 mg/dL (70-99) Calcium Level 8.0 mg/dL (8.5-10.1) Total Bilirubin 0.9 mg/dL (0.2-1.0) Aspartate Amino Transf (AST/SGOT) 198 U/L (15-37) Alanine Aminotransferase (ALT/SGPT) 106 U/L (14-59) Alkaline Phosphatase 94 U/L (46-116) Total Protein 6.0 g/dL (6.4-8.2) Albumin 3.0 g/dL (3.4-5.0) Albumin/Globulin Ratio 1.0 (1.0-1.7) Comment Review of Relevant I have reviewed the following items elaine (where applicable) has been applied. Labs Laboratory Tests Test 06/28/18 04:25 White Blood Count 3.6 x10^3/uL (4.0-11.0) Red Blood Count 3.78 x10^6/uL (3.50-5.40) Hemoglobin 11.7 g/dL (12.0-15.5) Hematocrit 34.3 % (36.0-47.0) Mean Corpuscular Volume 91 fL (79-100) Mean Corpuscular Hemoglobin 31 pg (25-35) Mean Corpuscular Hemoglobin Concent 34 g/dL (31-37) Red Cell Distribution Width 12.7 % (11.5-14.5) Platelet Count 178 x10^3/uL (140-400) Neutrophils (%) (Auto) 60 % (31-73) Lymphocytes (%) (Auto) 27 % (24-48) Monocytes (%) (Auto) 11 % (0-9) Eosinophils (%) (Auto) 2 % (0-3) Basophils (%) (Auto) 0 % (0-3) Neutrophils # (Auto) 2.2 x10^3uL (1.8-7.7) Lymphocytes # (Auto) 1.0 x10^3/uL (1.0-4.8) Monocytes # (Auto) 0.4 x10^3/uL (0.0-1.1) Eosinophils # (Auto) 0.1 x10^3/uL (0.0-0.7) Basophils # (Auto) 0.0 x10^3/uL (0.0-0.2) Sodium Level 140 mmol/L (136-145) Potassium Level 3.6 mmol/L (3.5-5.1) Chloride Level 105 mmol/L (98-107) Carbon Dioxide Level 23 mmol/L (21-32) Anion Gap 12 (6-14) Blood Urea Nitrogen 8 mg/dL (7-20) Creatinine 0.6 mg/dL (0.6-1.0) Estimated GFR (Cockcroft-Gault) 121.8 BUN/Creatinine Ratio 13 (6-20) Glucose Level 78 mg/dL (70-99) Calcium Level 8.0 mg/dL (8.5-10.1) Total Bilirubin 0.9 mg/dL (0.2-1.0) Aspartate Amino Transf (AST/SGOT) 198 U/L (15-37) Alanine Aminotransferase (ALT/SGPT) 106 U/L (14-59) Alkaline Phosphatase 94 U/L (46-116) Total Protein 6.0 g/dL (6.4-8.2) Albumin 3.0 g/dL (3.4-5.0) Albumin/Globulin Ratio 1.0 (1.0-1.7) Laboratory Tests Test 06/28/18 04:25 White Blood Count 3.6 x10^3/uL (4.0-11.0) Red Blood Count 3.78 x10^6/uL (3.50-5.40) Hemoglobin 11.7 g/dL (12.0-15.5) Hematocrit 34.3 % (36.0-47.0) Mean Corpuscular Volume 91 fL (79-100) Mean Corpuscular Hemoglobin 31 pg (25-35) Mean Corpuscular Hemoglobin Concent 34 g/dL (31-37) Red Cell Distribution Width 12.7 % (11.5-14.5) Platelet Count 178 x10^3/uL (140-400) Neutrophils (%) (Auto) 60 % (31-73) Lymphocytes (%) (Auto) 27 % (24-48) Monocytes (%) (Auto) 11 % (0-9) Eosinophils (%) (Auto) 2 % (0-3) Basophils (%) (Auto) 0 % (0-3) Neutrophils # (Auto) 2.2 x10^3uL (1.8-7.7) Lymphocytes # (Auto) 1.0 x10^3/uL (1.0-4.8) Monocytes # (Auto) 0.4 x10^3/uL (0.0-1.1) Eosinophils # (Auto) 0.1 x10^3/uL (0.0-0.7) Basophils # (Auto) 0.0 x10^3/uL (0.0-0.2) Sodium Level 140 mmol/L (136-145) Potassium Level 3.6 mmol/L (3.5-5.1) Chloride Level 105 mmol/L (98-107) Carbon Dioxide Level 23 mmol/L (21-32) Anion Gap 12 (6-14) Blood Urea Nitrogen 8 mg/dL (7-20) Creatinine 0.6 mg/dL (0.6-1.0) Estimated GFR (Cockcroft-Gault) 121.8 BUN/Creatinine Ratio 13 (6-20) Glucose Level 78 mg/dL (70-99) Calcium Level 8.0 mg/dL (8.5-10.1) Total Bilirubin 0.9 mg/dL (0.2-1.0) Aspartate Amino Transf (AST/SGOT) 198 U/L (15-37) Alanine Aminotransferase (ALT/SGPT) 106 U/L (14-59) Alkaline Phosphatase 94 U/L (46-116) Total Protein 6.0 g/dL (6.4-8.2) Albumin 3.0 g/dL (3.4-5.0) Albumin/Globulin Ratio 1.0 (1.0-1.7) Medications Current Medications Dicyclomine HCl (Bentyl) 10 mg PRN QID PRN PO ABDOMINAL PAIN Last administered on 06/27/18at 23:18; Start 06/27/18 at 21:00 Zolpidem Tartrate (Ambien) 5 mg PRN QHS PRN PO INSOMNIA Last administered on at 23:17; Start 06/27/18 at 21:00 Erythromycin (E-Mycin) 250 mg BID PO ; Start 06/27/18 at 22:00 Prochlorperazine Maleate (Compazine) 10 mg BID PO Last administered on at 23:18; Start 06/27/18 at 22:00 Fentanyl Citrate (Fentanyl 2ml Vial) 50 mcg PRN Q2HR PRN IV PAIN Last administered on 06/28/18at 08:12; Start 06/27/18 at 21:00 Oxycodone/ Acetaminophen (Percocet 5/325) 1 tab PRN Q4HRS PRN PO PAIN; Start at 21:00 Metoclopramide HCl (Reglan) 10 mg PRN BFRMEALHC PRN PO NAUSEA/VOMITING 2ND CHOICE; Start 06/27/18 at 21:00 Ondansetron HCl (Zofran) 4 mg PRN Q6HRS PRN IV NAUSEA/VOMITING 1ST CHOICE Last administered on 06/28/18at 04:45; Start 06/27/18 at 21:00 Ondansetron HCl (Zofran Odt) 4 mg PRN Q6HRS PRN PO NAUSEA/VOMITING 1ST CHOICE; Start 06/27/18 at 21:00 Prochlorperazine Edisylate (Compazine) 10 mg PRN Q6HRS PRN IV NAUSEA/VOMITING 2ND CHOICE Last administered on 06/28/18at 08:11; Start 06/27/18 at 21:00 Sodium Chloride 1,000 ml @ 100 mls/hr 1X ONCE IV Last administered on at 22:22; Start 06/27/18 at 21:30; Stop 06/28/18 at 07:29; Status DC Active Scripts Active Dicyclomine Hcl 10 Mg Capsule 10 Mg PO QID PRN Reported Ambien (Zolpidem Tartrate) 5 Mg Tablet 5 Mg PO PRN QHS PRN Compazine (Prochlorperazine Maleate) 10 Mg Tablet 10 Mg PO BID Erythromycin Stearate 250 Mg Tablet 250 Mg PO BID Vitals/I & O Vital Sign - Last 24 Hours 06/27/18 06/27/18 06/27/18 06/27/18 20:30 22:22 22:33 22:52 Temp 95.7 95.7 Pulse 110 Resp 18 18 18 B/P (MAP) 122/50 (74) Pulse Ox 96 O2 Delivery Room Air Room Air Room Air Room Air 06/27/18 06/28/18 06/28/18 06/28/18 23:47 02:14 04:45 07:00 Temp 98.5 98.4 98.5 98.4 Pulse 89 92 Resp 18 15 18 B/P (MAP) 116/80 (92) 105/47 (66) Pulse Ox 96 96 98 O2 Delivery Room Air Room Air Room Air Room Air 06/28/18 08:12 O2 Delivery Room Air MINO TIDWELL MD Jun 28, 2018 08:48
[2018-06-28] MEDS: ERYTHROMYCIN BASE 250 MG TABLET PO SCH ×2 (09:53→21:05)
[2018-06-28 11:00] VITALS: BP 116/60
--- NOTE | 2018-06-28 12:09 | PDOC2 ---
GI CONSULT Reason For Consult: Gastroparesis HPI: HPI: Pleasant 23 y/o female who has seen Dr. Grayson. I saw her this morning, Reema present. Past workup: EGD 05/2017: gastritis and nodular mucosa in the duodenum (path neg). GES 06/2017: delayed, T1/2 179 min. Colonoscopy 03/2018: "colitis" (biopsies neg). MRCP 01/2018: unrevealing. SBS 04/2018: unrevealing. S/p cholecystectomy. On e-mycin 250mg BID and ranitidine PRN. Ill w/ n/v and upper abd pain (epigastrium radiating through to back and around both sides) x 1 week, pain worse yesterday. Similar to symptoms in the past. Typically constipated but has had some diarrhea. Saw red blood in emesis yesterday, did have a red popsicle (but didn't look like popsicle). Has lost weight. Denies h/o elevated LFTs, has heavy periods sometimes. PMH: PMH: gastroparesis, cholecystectomy FH: Family History: Other (father - GI problem) Social History: Smoke: Quit ALCOHOL: rare Drugs: None ROS: GEN: Denies fevers, chills, sweats HEENT: Denies blurred vision, sore throat CV: Denies chest pain RESP: Denies shortness of air, cough GI: Per HPI : Denies hematuria, dysuria ENDO: +weight loss NEURO: Denies confusion, dizziness MSK: Denies weakness, joint pain/swelling SKIN: Denies jaundice, pruritus Vitals: Vitals: Vital Signs Date Time Temp Pulse Resp B/P (MAP) Pulse Ox O2 Delivery O2 Flow Rate FiO2 06/28/18 11:00 98.4 83 17 116/60 (78) 98 Room Air 98.4 Labs: Labs: Laboratory Tests Test 06/28/18 04:25 White Blood Count 3.6 x10^3/uL (4.0-11.0) Red Blood Count 3.78 x10^6/uL (3.50-5.40) Hemoglobin 11.7 g/dL (12.0-15.5) Hematocrit 34.3 % (36.0-47.0) Mean Corpuscular Volume 91 fL (79-100) Mean Corpuscular Hemoglobin 31 pg (25-35) Mean Corpuscular Hemoglobin Concent 34 g/dL (31-37) Red Cell Distribution Width 12.7 % (11.5-14.5) Platelet Count 178 x10^3/uL (140-400) Neutrophils (%) (Auto) 60 % (31-73) Lymphocytes (%) (Auto) 27 % (24-48) Monocytes (%) (Auto) 11 % (0-9) Eosinophils (%) (Auto) 2 % (0-3) Basophils (%) (Auto) 0 % (0-3) Neutrophils # (Auto) 2.2 x10^3uL (1.8-7.7) Lymphocytes # (Auto) 1.0 x10^3/uL (1.0-4.8) Monocytes # (Auto) 0.4 x10^3/uL (0.0-1.1) Eosinophils # (Auto) 0.1 x10^3/uL (0.0-0.7) Basophils # (Auto) 0.0 x10^3/uL (0.0-0.2) Sodium Level 140 mmol/L (136-145) Potassium Level 3.6 mmol/L (3.5-5.1) Chloride Level 105 mmol/L (98-107) Carbon Dioxide Level 23 mmol/L (21-32) Anion Gap 12 (6-14) Blood Urea Nitrogen 8 mg/dL (7-20) Creatinine 0.6 mg/dL (0.6-1.0) Estimated GFR (Cockcroft-Gault) 121.8 BUN/Creatinine Ratio 13 (6-20) Glucose Level 78 mg/dL (70-99) Calcium Level 8.0 mg/dL (8.5-10.1) Total Bilirubin 0.9 mg/dL (0.2-1.0) Aspartate Amino Transf (AST/SGOT) 198 U/L (15-37) Alanine Aminotransferase (ALT/SGPT) 106 U/L (14-59) Alkaline Phosphatase 94 U/L (46-116) Total Protein 6.0 g/dL (6.4-8.2) Albumin 3.0 g/dL (3.4-5.0) Albumin/Globulin Ratio 1.0 (1.0-1.7) Allergies: Coded Allergies: morphine (Verified Allergy, Intermediate, 03/23/18) Medications: Current Medications Medications (Trade) Dose Ordered Sig/Yudy Route PRN Reason Start Time Stop Time Status Last Admin Dose Admin Dicyclomine HCl (Bentyl) 10 mg PRN QID PRN PO ABDOMINAL PAIN 06/27/18 21:00 06/27/18 23:18 Zolpidem Tartrate (Ambien) 5 mg PRN QHS PRN PO INSOMNIA 06/27/18 21:00 06/27/18 23:17 Erythromycin (E-Mycin) 250 mg BID PO 06/27/18 22:00 06/28/18 09:53 Prochlorperazine Maleate (Compazine) 10 mg BID PO 06/27/18 22:00 06/27/18 23:18 Fentanyl Citrate (Fentanyl 2ml Vial) 50 mcg PRN Q2HR PRN IV PAIN 06/27/18 21:00 06/28/18 08:12 Ondansetron HCl (Zofran) 4 mg PRN Q6HRS PRN IV NAUSEA/VOMITING 1ST CHOICE 06/27/18 21:00 06/28/18 04:45 Prochlorperazine Edisylate (Compazine) 10 mg PRN Q6HRS PRN IV NAUSEA/VOMITING 2ND CHOICE 06/27/18 21:00 06/28/18 08:11 Sodium Chloride 1,000 ml @ 100 mls/hr 1X ONCE IV 06/27/18 21:30 06/28/18 07:29 DC 06/27/18 22:22 Imaging: Imaging: per HPI PE: GEN: NAD HEENT: Atraumatic, PERRL LUNGS: CTAB HEART: RRR ABD: NABS, S/ND, epigastric pain - less so BUQ EXTREMITY: No edema SKIN: No rashes, no jaundice NEURO/PSYCH: A & O 3 A/P: A/P: Recurrent n/v, upper abd pain Gastroparesis S/p cholecystectomy Leukopenia, anemia, transaminitis -- Check head CT and liver US. Monitor labs. Check stool studies if diarrhea recurs. Okay to ADAT. Might do well w/ regular acid-cheese cooker. Additional recs per Dr. Grayson - consideration for ERCP w/ manometry in the past - they would prefer to go to [facility] instead of [facility] due to insurance. MALORIE BURKS Jun 28, 2018 12:09
[2018-06-28] MEDS ORDERED: IV NORMAL SALINE 1000ML BAG 1,000 ML IV ONE (12:30)
--- NOTE | 2018-06-28 12:52 | RAD ---
EXAM: Abdomen sonogram. HISTORY: Transaminitis. TECHNIQUE: Sonographic imaging of the abdomen was performed. COMPARISON: MRCP dated 02/17/2018. FINDINGS: The liver is normal in size. No focal hepatic lesion is seen. The gallbladder is surgically absent. The common bile duct is normal in caliber. The right kidney is unremarkable. The inferior vena cava and aorta are unremarkable. The pancreas is echogenic. No focal pancreatic lesion is seen. IMPRESSION: 1. Colostomy. 2. No acute finding. Electronically signed by: Gillian Perdue MD (06/28/2018 12:49 PM) [facility]INE[facility]2
--- NOTE | 2018-06-28 12:57 | RAD ---
EXAM: Head CT without contrast. HISTORY: Nausea and vomiting. TECHNIQUE: Computed tomographic images of the head were obtained without contrast. *One or more of the following individualized dose reduction techniques were utilized for this examination: 1. Automated exposure control. 2. Adjustment of the mA and/or kV according to patient size. 3. Use of iterative reconstruction technique. COMPARISON: None. FINDINGS: There is no acute or subacute extra-axial or intraparenchymal hemorrhage. There is no mass effect or midline shift. There is no hydrocephalus. The marinelli-white matter differentiation pattern is intact. The visualized portions of the orbits, paranasal sinuses and mastoid air cells are unremarkable. No suspicious calvarial lesion is seen. IMPRESSION: No acute intracranial findings. Electronically signed by: Gillian Perdue MD (06/28/2018 12:54 PM) [place] [id number]
[2018-06-28 15:00] VITALS: BP 118/53
[2018-06-28 18:40] VITALS: BP 122/58
[2018-06-28] MEDS: FAMOTIDINE 20 MG TABLET. PO SCH (21:05)
[2018-06-28] MEDS: ZOLPIDEM 5 MG TABLET. PO PRN (22:05)
[2018-06-28 23:00] VITALS: BP 115/57
[2018-06-29] MEDS: fentaNYL PF VIAL 100 MCG/2 ML VIAL IV PRN ×4 (06:00→16:32)
[2018-06-29] MEDS: ONDANSETRON PF 4 MG/2 ML VIAL. IV PRN ×2 (06:00→12:42)
[2018-06-29 06:41] VITALS: BP 109/64
[2018-06-29 06:48] LABS: HEMATOCRIT 33.4 % (36.0-47.0); HEMOGLOBIN 11.4 g/dL (12.0-15.5); RED BLOOD COUNT 3.65 x10^6/uL (3.50-5.40); RED CELL DISTRIBUTION WIDTH 12.8 % (11.5-14.5); WHITE BLOOD COUNT 3.6 x10^3/uL (4.0-11.0)
[2018-06-29 07:17] LABS: ALBUMIN 3.3 g/dL (3.4-5.0); ALBUMIN/GLOBULIN RATIO 1.1 (1.0-1.7); CALCIUM 8.3 mg/dL (8.5-10.1); CREATININE 0.7 mg/dL (0.6-1.0); POTASSIUM 3.7 mmol/L (3.5-5.1); TOTAL BILIRUBIN 0.6 mg/dL (0.2-1.0); TOTAL PROTEIN 6.2 g/dL (6.4-8.2)
[2018-06-29] MEDS: PROCHLORPERAZINE 5 MG TABLET. PO SCH ×2 (08:36→20:12)
[2018-06-29] MEDS: ERYTHROMYCIN BASE 250 MG TABLET PO SCH ×2 (08:37→20:12)
[2018-06-29] MEDS: FAMOTIDINE 20 MG TABLET. PO SCH ×2 (08:37→20:12)
--- NOTE | 2018-06-29 09:23 | PDOC ---
PROGRESS NOTES History of Present Illness History of Present Illness Assessment/Plan Assessment/Plan Gastroparesis EXAC, severe -She is known to Dr. Grayson. , CONSULTED Normal saline fluid 1 , IV FLUID SUPPORT home meds Diarrhea-abated Supprotive meds Dw mother at bedside 06/28 NO IMPROVEMENT, STILL VOMITED THIS AM 06/29 SLOW PROGRESS MAY BENEFIT FOR J-TUBE if continues to decline, poor intake little to eat, vomited all of dinner last night Vitals Vitals Vital Signs Date Time Temp Pulse Resp B/P (MAP) Pulse Ox O2 Delivery O2 Flow Rate FiO2 06/29/18 08:44 Room Air 06/29/18 06:41 99.0 91 18 109/64 (79) 98 99.0 Physical Exam General: Alert, Oriented X3, Cooperative, No acute distress, mild distress Heart: Regular rate, Normal S1 Lungs: Clear Abdomen: Normal bowel sounds, Soft, No tenderness, No hepatosplenomegaly, No masses Extremities: No clubbing, No cyanosis, No edema, Normal pulses, No tenderness/ swelling Skin: No rashes, No breakdown, No significant lesion Labs LABS PROCEDURE: MRCP WO CONTRAST per my review of records MRCP compared to CT scan of the abdomen and pelvis dated July 06, 2005 for worsening abdominal pain status post cholecystectomy 2 years ago. TECHNIQUE: Multiplanar multisequence MR imaging of the abdomen is performed including extreme T2-weighted MR cholangiogram and 3-D volume rendered images of the biliary tree. FINDINGS: There are postsurgical changes of prior cholecystectomy. No intra or extrahepatic biliary ductal dilatation is seen. No biliary filling defects are identified. There is a tiny simple cyst within the left lobe of the liver, measuring less than 1 cm. No other liver parenchymal abnormality is are identified. No signal loss within the hepatic parenchyma with out of phase imaging. The pancreas is normal in appearance. No pancreatic ductal dilatation is seen. The bilateral adrenal glands and bilateral kidneys are also normal in appearance. Spleen is normal. A small accessory splenule is seen anteriorly. Visualized hollow viscus structures are grossly unremarkable. No pathologic lymphadenopathy is seen. No free or loculated fluid collections are present. No soft tissue or osseous abnormalities are seen. IMPRESSION: 1. Postsurgical changes of cholecystectomy, with no discernible abdominal pathology. 2. Small accessory splenule. Electronically signed by: Víctor Angeles MD (02/17/2018 1:07 PM) [facility] DICTATED and SIGNED BY: VÍCTOR ANGELES MD DATE: 02/17/18 5601 Laboratory Tests Test 06/29/18 06:00 White Blood Count 3.6 x10^3/uL (4.0-11.0) Red Blood Count 3.65 x10^6/uL (3.50-5.40) Hemoglobin 11.4 g/dL (12.0-15.5) Hematocrit 33.4 % (36.0-47.0) Mean Corpuscular Volume 92 fL (79-100) Mean Corpuscular Hemoglobin 31 pg (25-35) Mean Corpuscular Hemoglobin Concent 34 g/dL (31-37) Red Cell Distribution Width 12.8 % (11.5-14.5) Platelet Count 184 x10^3/uL (140-400) Sodium Level 140 mmol/L (136-145) Potassium Level 3.7 mmol/L (3.5-5.1) Chloride Level 106 mmol/L (98-107) Carbon Dioxide Level 24 mmol/L (21-32) Anion Gap 10 (6-14) Blood Urea Nitrogen 5 mg/dL (7-20) Creatinine 0.7 mg/dL (0.6-1.0) Estimated GFR (Cockcroft-Gault) 102.0 BUN/Creatinine Ratio 7 (6-20) Glucose Level 86 mg/dL (70-99) Calcium Level 8.3 mg/dL (8.5-10.1) Total Bilirubin 0.6 mg/dL (0.2-1.0) Aspartate Amino Transf (AST/SGOT) 88 U/L (15-37) Alanine Aminotransferase (ALT/SGPT) 128 U/L (14-59) Alkaline Phosphatase 115 U/L (46-116) Total Protein 6.2 g/dL (6.4-8.2) Albumin 3.3 g/dL (3.4-5.0) Albumin/Globulin Ratio 1.1 (1.0-1.7) Comment Review of Relevant I have reviewed the following items elaine (where applicable) has been applied. Labs Laboratory Tests Test 06/28/18 04:25 06/29/18 06:00 White Blood Count 3.6 x10^3/uL (4.0-11.0) 3.6 x10^3/uL (4.0-11.0) Red Blood Count 3.78 x10^6/uL (3.50-5.40) 3.65 x10^6/uL (3.50-5.40) Hemoglobin 11.7 g/dL (12.0-15.5) 11.4 g/dL (12.0-15.5) Hematocrit 34.3 % (36.0-47.0) 33.4 % (36.0-47.0) Mean Corpuscular Volume 91 fL (79-100) 92 fL (79-100) Mean Corpuscular Hemoglobin 31 pg (25-35) 31 pg (25-35) Mean Corpuscular Hemoglobin Concent 34 g/dL (31-37) 34 g/dL (31-37) Red Cell Distribution Width 12.7 % (11.5-14.5) 12.8 % (11.5-14.5) Platelet Count 178 x10^3/uL (140-400) 184 x10^3/uL (140-400) Neutrophils (%) (Auto) 60 % (31-73) Lymphocytes (%) (Auto) 27 % (24-48) Monocytes (%) (Auto) 11 % (0-9) Eosinophils (%) (Auto) 2 % (0-3) Basophils (%) (Auto) 0 % (0-3) Neutrophils # (Auto) 2.2 x10^3uL (1.8-7.7) Lymphocytes # (Auto) 1.0 x10^3/uL (1.0-4.8) Monocytes # (Auto) 0.4 x10^3/uL (0.0-1.1) Eosinophils # (Auto) 0.1 x10^3/uL (0.0-0.7) Basophils # (Auto) 0.0 x10^3/uL (0.0-0.2) Reticulocyte Count (auto) 1.3 % (0.5-2.5) Sodium Level 140 mmol/L (136-145) 140 mmol/L (136-145) Potassium Level 3.6 mmol/L (3.5-5.1) 3.7 mmol/L (3.5-5.1) Chloride Level 105 mmol/L (98-107) 106 mmol/L (98-107) Carbon Dioxide Level 23 mmol/L (21-32) 24 mmol/L (21-32) Anion Gap 12 (6-14) 10 (6-14) Blood Urea Nitrogen 8 mg/dL (7-20) 5 mg/dL (7-20) Creatinine 0.6 mg/dL (0.6-1.0) 0.7 mg/dL (0.6-1.0) Estimated GFR (Cockcroft-Gault) 121.8 102.0 BUN/Creatinine Ratio 13 (6-20) 7 (6-20) Glucose Level 78 mg/dL (70-99) 86 mg/dL (70-99) Calcium Level 8.0 mg/dL (8.5-10.1) 8.3 mg/dL (8.5-10.1) Iron Level 77 ug/dL (50-170) Total Iron Binding Capacity 229 ug/dL (250-450) Iron Saturation 34 % (15-34) Total Bilirubin 0.9 mg/dL (0.2-1.0) 0.6 mg/dL (0.2-1.0) Aspartate Amino Transf (AST/SGOT) 198 U/L (15-37) 88 U/L (15-37) Alanine Aminotransferase (ALT/SGPT) 106 U/L (14-59) 128 U/L (14-59) Alkaline Phosphatase 94 U/L (46-116) 115 U/L (46-116) Total Protein 6.0 g/dL (6.4-8.2) 6.2 g/dL (6.4-8.2) Albumin 3.0 g/dL (3.4-5.0) 3.3 g/dL (3.4-5.0) Albumin/Globulin Ratio 1.0 (1.0-1.7) 1.1 (1.0-1.7) Lipase 47 U/L (73-393) Vitamin B12 Level 259 pg/mL (247-911) Laboratory Tests Test 06/29/18 06:00 White Blood Count 3.6 x10^3/uL (4.0-11.0) Red Blood Count 3.65 x10^6/uL (3.50-5.40) Hemoglobin 11.4 g/dL (12.0-15.5) Hematocrit 33.4 % (36.0-47.0) Mean Corpuscular Volume 92 fL (79-100) Mean Corpuscular Hemoglobin 31 pg (25-35) Mean Corpuscular Hemoglobin Concent 34 g/dL (31-37) Red Cell Distribution Width 12.8 % (11.5-14.5) Platelet Count 184 x10^3/uL (140-400) Sodium Level 140 mmol/L (136-145) Potassium Level 3.7 mmol/L (3.5-5.1) Chloride Level 106 mmol/L (98-107) Carbon Dioxide Level 24 mmol/L (21-32) Anion Gap 10 (6-14) Blood Urea Nitrogen 5 mg/dL (7-20) Creatinine 0.7 mg/dL (0.6-1.0) Estimated GFR (Cockcroft-Gault) 102.0 BUN/Creatinine Ratio 7 (6-20) Glucose Level 86 mg/dL (70-99) Calcium Level 8.3 mg/dL (8.5-10.1) Total Bilirubin 0.6 mg/dL (0.2-1.0) Aspartate Amino Transf (AST/SGOT) 88 U/L (15-37) Alanine Aminotransferase (ALT/SGPT) 128 U/L (14-59) Alkaline Phosphatase 115 U/L (46-116) Total Protein 6.2 g/dL (6.4-8.2) Albumin 3.3 g/dL (3.4-5.0) Albumin/Globulin Ratio 1.1 (1.0-1.7) Medications Current Medications Dicyclomine HCl (Bentyl) 10 mg PRN QID PRN PO ABDOMINAL PAIN Last administered on 06/27/18at 23:18; Start 06/27/18 at 21:00 Zolpidem Tartrate (Ambien) 5 mg PRN QHS PRN PO INSOMNIA Last administered on at 22:05; Start 06/27/18 at 21:00 Erythromycin (E-Mycin) 250 mg BID PO Last administered on 06/29/18at 08:37; Start 06/27/18 at 22:00 Prochlorperazine Maleate (Compazine) 10 mg BID PO Last administered on at 08:36; Start 06/27/18 at 22:00 Fentanyl Citrate (Fentanyl 2ml Vial) 50 mcg PRN Q2HR PRN IV PAIN Last administered on 06/29/18at 08:44; Start 06/27/18 at 21:00 Oxycodone/ Acetaminophen (Percocet 5/325) 1 tab PRN Q4HRS PRN PO PAIN; Start at 21:00 Metoclopramide HCl (Reglan) 10 mg PRN BFRMEALHC PRN PO NAUSEA/VOMITING 2ND CHOICE; Start 06/27/18 at 21:00 Ondansetron HCl (Zofran) 4 mg PRN Q6HRS PRN IV NAUSEA/VOMITING 1ST CHOICE Last administered on 06/29/18at 06:00; Start 06/27/18 at 21:00 Ondansetron HCl (Zofran Odt) 4 mg PRN Q6HRS PRN PO NAUSEA/VOMITING 1ST CHOICE; Start 06/27/18 at 21:00 Prochlorperazine Edisylate (Compazine) 10 mg PRN Q6HRS PRN IV NAUSEA/VOMITING 2ND CHOICE Last administered on 06/28/18at 22:05; Start 06/27/18 at 21:00 Sodium Chloride 1,000 ml @ 100 mls/hr 1X ONCE IV Last administered on at 22:22; Start 06/27/18 at 21:30; Stop 06/28/18 at 07:29; Status DC Sodium Chloride 1,000 ml @ 100 mls/hr 1X ONCE IV Last administered on at 12:10; Start 06/28/18 at 12:30; Stop 06/28/18 at 22:29; Status DC Famotidine (Pepcid) 20 mg BID PO Last administered on 06/29/18at 08:37; Start at 21:00 Active Scripts Active Dicyclomine Hcl 10 Mg Capsule 10 Mg PO QID PRN Reported Ambien (Zolpidem Tartrate) 5 Mg Tablet 5 Mg PO PRN QHS PRN Compazine (Prochlorperazine Maleate) 10 Mg Tablet 10 Mg PO BID Erythromycin Stearate 250 Mg Tablet 250 Mg PO BID Vitals/I & O Vital Sign - Last 24 Hours 06/28/18 06/28/18 06/28/18 06/28/18 11:00 12:17 15:00 16:12 Temp 98.4 98.4 98.4 98.4 Pulse 83 16 Resp 17 17 B/P (MAP) 116/60 (78) 118/53 (74) Pulse Ox 98 99 O2 Delivery Room Air Room Air Room Air Room Air 06/28/18 06/28/18 06/28/18 06/28/18 18:40 18:51 19:21 21:05 Temp 98.2 98.2 Pulse 66 Resp 18 18 18 B/P (MAP) 122/58 (79) Pulse Ox 99 O2 Delivery Room Air Room Air Room Air 06/28/18 06/29/18 06/29/18 06/29/18 23:00 03:00 06:00 06:30 Temp 98.1 98.1 Pulse 96 Resp 18 18 B/P (MAP) 115/57 (76) Pulse Ox 100 O2 Delivery Room Air Room Air Room Air Room Air 06/29/18 06/29/18 06:41 08:44 Temp 99.0 99.0 Pulse 91 Resp 18 B/P (MAP) 109/64 (79) Pulse Ox 98 O2 Delivery Room Air Room Air Intake and Output 06/28/18 06/28/18 06/29/18 15:00 23:00 07:00 Intake Total 1000 ml 1000 ml 100 ml Output Total 600 ml Balance 1000 ml 1000 ml -500 ml MINO TIDWELL MD Jun 29, 2018 09:23
[2018-06-29 11:00] VITALS: BP 121/68
[2018-06-29] MEDS: oxyCODONE/APAP 5/325 1 TAB TABLET PO PRN ×2 (12:57→20:12)
--- NOTE | 2018-06-29 14:33 | NUR ---
SW following. Discussed with RN, RN advised no SW needs at this time. SW will continue to follow.
[2018-06-29 14:36] VITALS: BP 106/54
--- NOTE | 2018-06-29 15:10 | PDOC ---
Subjective: Subjective: I saw her earlier during [employer] downtime, participated in discussion via phone. Feels the same - not worse but not much better. No appetite but drinking ok. Pain is upper abdomen - not to back today. Questions about SOD. Objective: Objective: D/w RN. Vital Signs: Vital Signs Date Time Temp Pulse Resp B/P (MAP) Pulse Ox O2 Delivery O2 Flow Rate FiO2 06/29/18 14:36 98.6 96 18 106/54 (71) 98 Room Air 98.6 Labs: Laboratory Tests Test 06/29/18 06:00 White Blood Count 3.6 x10^3/uL Red Blood Count 3.65 x10^6/uL Hemoglobin 11.4 g/dL Hematocrit 33.4 % Mean Corpuscular Volume 92 fL Mean Corpuscular Hemoglobin 31 pg Mean Corpuscular Hemoglobin Concent 34 g/dL Red Cell Distribution Width 12.8 % Platelet Count 184 x10^3/uL Sodium Level 140 mmol/L Potassium Level 3.7 mmol/L Chloride Level 106 mmol/L Carbon Dioxide Level 24 mmol/L Anion Gap 10 Blood Urea Nitrogen 5 mg/dL Creatinine 0.7 mg/dL Estimated GFR (Cockcroft-Gault) 102.0 BUN/Creatinine Ratio 7 Glucose Level 86 mg/dL Calcium Level 8.3 mg/dL Total Bilirubin 0.6 mg/dL Aspartate Amino Transf (AST/SGOT) 88 U/L Alanine Aminotransferase (ALT/SGPT) 128 U/L Alkaline Phosphatase 115 U/L Total Protein 6.2 g/dL Albumin 3.3 g/dL Albumin/Globulin Ratio 1.1 Cortisol AM Sample 17.8 ug/dL Imaging: Head CT IMPRESSION: No acute intracranial findings. RUQ US IMPRESSION: 1. Colostomy. -----------------------------------------------------> assuming typo for cholecystectomy 2. No acute finding. PE: GEN: NAD LUNGS: CTAB HEART: RRR ABD: NABS, S/ND/NT NEURO/PSYCH: A & O 3 A/P: Recurrent upper abd pain Gastroparesis - on e-mycin and H2 madeline BID Transaminitis - fluctuating -- Past workup includes EGD, colonoscopy, SBS, GES, and MRCP. Cortisol and lipase normal, GRICEL pending. AST better, ALT a little worse - unremarkable liver on US s/p cholecystectomy. Can check KUB w/ ongoing pain. Has Bentyl, can try GI cocktail and/or Carafate. Continue support, consider ERCP w/ FIDELINA as outpt. MALORIE BURKS Jun 29, 2018 15:10 PAULETTE PRESTON MD Jun 29, 2018 15:11
[2018-06-29] MEDS ORDERED: LIDO:MAALOX 1:1 20 ML SINGLE DOSE. PO PRN (15:15)
[2018-06-29] MEDS ORDERED: POLYETHYLENE GLYCOL 3350 17 GM PACKET. PO PRN (15:15)
--- NOTE | 2018-06-29 16:00 | NUR ---
Pt. PRN medications not scanned r/t PROTEGO system not working.
[2018-06-29] MEDS ORDERED: diphenhydrAMINE HCL 25 MG CAPSULE PO PRN (16:15)
[2018-06-29] MEDS: PROCHLORPERAZINE 10 MG/2 ML VIAL. IV PRN (16:32)
[2018-06-29] MEDS: SUCRALFATE 1 GM/10 ML ORAL.SUSP. PO SCH (16:32)
[2018-06-29] MEDS ORDERED: IV NORMAL SALINE 1000ML BAG 1,000 ML IV ONE (16:45)
--- NOTE | 2018-06-29 16:45 | RAD ---
AP view of the abdomen Clinical indications: Upper abdominal pain off and on for several years. FINDINGS: Mild fecal retention is seen throughout the colon. No obstructive bowel pattern is evident. Cholecystectomy clips are evident. Umbilical jewelry is evident. The osseous structures are intact. IMPRESSION: No acute radiographic abnormality. Electronically signed by: Blair Scott MD (06/29/2018 4:42 PM) [facility]
[2018-06-29 19:00] VITALS: BP 112/72
[2018-06-29] MEDS: METOCLOPRAMIDE 10 MG TABLET. PO PRN (20:12)
[2018-06-29] MEDS: ZOLPIDEM 5 MG TABLET. PO PRN (20:12)
[2018-06-29 23:00] VITALS: BP 133/60
[2018-06-30 02:11] LABS: EBNA IGG >600.0 U/mL (0.0-17.9)
[2018-06-30 03:00] VITALS: BP 104/62
[2018-06-30] MEDS: PROCHLORPERAZINE 10 MG/2 ML VIAL. IV PRN (03:50)
[2018-06-30] MEDS: fentaNYL PF VIAL 100 MCG/2 ML VIAL IV PRN (04:16)
[2018-06-30 04:47] LABS: HEMATOCRIT 31.6 % (36.0-47.0); HEMOGLOBIN 10.9 g/dL (12.0-15.5); RED BLOOD COUNT 3.47 x10^6/uL (3.50-5.40); RED CELL DISTRIBUTION WIDTH 12.6 % (11.5-14.5); WHITE BLOOD COUNT 3.7 x10^3/uL (4.0-11.0)
[2018-06-30 05:16] LABS: ALBUMIN 3.2 g/dL (3.4-5.0); ALBUMIN/GLOBULIN RATIO 1.1 (1.0-1.7); CALCIUM 8.1 mg/dL (8.5-10.1); CREATININE 0.7 mg/dL (0.6-1.0); POTASSIUM 3.6 mmol/L (3.5-5.1); TOTAL BILIRUBIN 0.7 mg/dL (0.2-1.0)
[2018-06-30 07:00] VITALS: BP 122/69
[2018-06-30] MEDS: SUCRALFATE 1 GM/10 ML ORAL.SUSP. PO SCH (08:54)
[2018-06-30] MEDS: FAMOTIDINE 20 MG TABLET. PO SCH (08:55)
[2018-06-30] MEDS: PROCHLORPERAZINE 5 MG TABLET. PO SCH (08:55)
[2018-06-30] MEDS: ERYTHROMYCIN BASE 250 MG TABLET PO SCH (08:55)
[2018-06-30] MEDS: oxyCODONE/APAP 5/325 1 TAB TABLET PO PRN (09:01)
--- NOTE | 2018-06-30 10:32 | PDOC ---
PROGRESS NOTES History of Present Illness History of Present Illness discharge dx Assessment/Plan Gastroparesis EXAC, severe EB viral illness suspected -She is known to Dr. Grayson. , CONSULTED IV FLUID SUPPORT home meds Diarrhea-abated Supportive meds Dw mother at bedside 06/28 NO IMPROVEMENT, STILL VOMITED THIS AM 06/29 SLOW PROGRESS MAY BENEFIT FOR J-TUBE if continues to decline, poor intake little to eat, vomited all of dinner last night 06/30 eating better, plan ERCP outpt Vitals Vitals Vital Signs Date Time Temp Pulse Resp B/P (MAP) Pulse Ox O2 Delivery O2 Flow Rate FiO2 06/30/18 09:01 Room Air 06/30/18 07:00 97.9 101 18 122/69 (86) 97 97.9 Physical Exam General: Alert, Oriented X3, Cooperative, No acute distress, mild distress Heart: Regular rate, Normal S1, Normal S2 Lungs: Clear Abdomen: Normal bowel sounds, Soft, No tenderness, No hepatosplenomegaly, No masses Extremities: No clubbing, No cyanosis, No edema, Normal pulses, No tenderness/ swelling Skin: No rashes, No breakdown, No significant lesion Labs LABS REASON: upper abd pain off and on for several years PROCEDURE: KUB AP view of the abdomen Clinical indications: Upper abdominal pain off and on for several years. FINDINGS: Mild fecal retention is seen throughout the colon. No obstructive bowel pattern is evident. Cholecystectomy clips are evident. Umbilical jewelry is evident. The osseous structures are intact. IMPRESSION: No acute radiographic abnormality. Electronically signed by: Blair Scott MD (06/29/2018 4:42 PM) [facility] Laboratory Tests Test 06/30/18 04:30 White Blood Count 3.7 x10^3/uL (4.0-11.0) Red Blood Count 3.47 x10^6/uL (3.50-5.40) Hemoglobin 10.9 g/dL (12.0-15.5) Hematocrit 31.6 % (36.0-47.0) Mean Corpuscular Volume 91 fL (79-100) Mean Corpuscular Hemoglobin 32 pg (25-35) Mean Corpuscular Hemoglobin Concent 35 g/dL (31-37) Red Cell Distribution Width 12.6 % (11.5-14.5) Platelet Count 173 x10^3/uL (140-400) Sodium Level 141 mmol/L (136-145) Potassium Level 3.6 mmol/L (3.5-5.1) Chloride Level 106 mmol/L (98-107) Carbon Dioxide Level 22 mmol/L (21-32) Anion Gap 13 (6-14) Blood Urea Nitrogen 6 mg/dL (7-20) Creatinine 0.7 mg/dL (0.6-1.0) Estimated GFR (Cockcroft-Gault) 102.0 BUN/Creatinine Ratio 9 (6-20) Glucose Level 83 mg/dL (70-99) Calcium Level 8.1 mg/dL (8.5-10.1) Total Bilirubin 0.7 mg/dL (0.2-1.0) Aspartate Amino Transf (AST/SGOT) 60 U/L (15-37) Alanine Aminotransferase (ALT/SGPT) 102 U/L (14-59) Alkaline Phosphatase 118 U/L (46-116) Total Protein 6.0 g/dL (6.4-8.2) Albumin 3.2 g/dL (3.4-5.0) Albumin/Globulin Ratio 1.1 (1.0-1.7) Comment Review of Relevant I have reviewed the following items elaine (where applicable) has been applied. Labs Laboratory Tests Test 06/29/18 06:00 06/30/18 04:30 White Blood Count 3.6 x10^3/uL (4.0-11.0) 3.7 x10^3/uL (4.0-11.0) Red Blood Count 3.65 x10^6/uL (3.50-5.40) 3.47 x10^6/uL (3.50-5.40) Hemoglobin 11.4 g/dL (12.0-15.5) 10.9 g/dL (12.0-15.5) Hematocrit 33.4 % (36.0-47.0) 31.6 % (36.0-47.0) Mean Corpuscular Volume 92 fL (79-100) 91 fL (79-100) Mean Corpuscular Hemoglobin 31 pg (25-35) 32 pg (25-35) Mean Corpuscular Hemoglobin Concent 34 g/dL (31-37) 35 g/dL (31-37) Red Cell Distribution Width 12.8 % (11.5-14.5) 12.6 % (11.5-14.5) Platelet Count 184 x10^3/uL (140-400) 173 x10^3/uL (140-400) Sodium Level 140 mmol/L (136-145) 141 mmol/L (136-145) Potassium Level 3.7 mmol/L (3.5-5.1) 3.6 mmol/L (3.5-5.1) Chloride Level 106 mmol/L (98-107) 106 mmol/L (98-107) Carbon Dioxide Level 24 mmol/L (21-32) 22 mmol/L (21-32) Anion Gap 10 (6-14) 13 (6-14) Blood Urea Nitrogen 5 mg/dL (7-20) 6 mg/dL (7-20) Creatinine 0.7 mg/dL (0.6-1.0) 0.7 mg/dL (0.6-1.0) Estimated GFR (Cockcroft-Gault) 102.0 102.0 BUN/Creatinine Ratio 7 (6-20) 9 (6-20) Glucose Level 86 mg/dL (70-99) 83 mg/dL (70-99) Calcium Level 8.3 mg/dL (8.5-10.1) 8.1 mg/dL (8.5-10.1) Total Bilirubin 0.6 mg/dL (0.2-1.0) 0.7 mg/dL (0.2-1.0) Aspartate Amino Transf (AST/SGOT) 88 U/L (15-37) 60 U/L (15-37) Alanine Aminotransferase (ALT/SGPT) 128 U/L (14-59) 102 U/L (14-59) Alkaline Phosphatase 115 U/L (46-116) 118 U/L (46-116) Total Protein 6.2 g/dL (6.4-8.2) 6.0 g/dL (6.4-8.2) Albumin 3.3 g/dL (3.4-5.0) 3.2 g/dL (3.4-5.0) Albumin/Globulin Ratio 1.1 (1.0-1.7) 1.1 (1.0-1.7) Cortisol AM Sample 17.8 ug/dL (4.3-22.4) Cytomegalovirus IgG Antibody <0.60 U/mL (0.00-0.59) Cytomegalovirus IgM Antibody <30.0 AU/mL (0.0-29.9) Jakob-Parekh Virus Capsid Ag IgG Ab 236.0 U/mL (0.0-17.9) Jakob-Parekh Virus Capsid Ag IgM Ab <36.0 U/mL (0.0-35.9) Jakob-Parekh Early Antigen IgG Ab 59.8 U/mL (0.0-8.9) Jakob-Parekh Nuc Assoc Ag IgG Index >600.0 U/mL (0.0-17.9) Jakob-Parekh Virus Interpretation Comment (.) Hepatitis A IgM Antibody Nonreactive (Nonreactive) Hepatitis B Surface Antigen Nonreactive (Nonreactive) Hepatitis B Core IgM Antibody Nonreactive (Nonreactive) Hepatitis C IgG Antibody Nonreactive (Nonreactive) Laboratory Tests Test 06/30/18 04:30 White Blood Count 3.7 x10^3/uL (4.0-11.0) Red Blood Count 3.47 x10^6/uL (3.50-5.40) Hemoglobin 10.9 g/dL (12.0-15.5) Hematocrit 31.6 % (36.0-47.0) Mean Corpuscular Volume 91 fL (79-100) Mean Corpuscular Hemoglobin 32 pg (25-35) Mean Corpuscular Hemoglobin Concent 35 g/dL (31-37) Red Cell Distribution Width 12.6 % (11.5-14.5) Platelet Count 173 x10^3/uL (140-400) Sodium Level 141 mmol/L (136-145) Potassium Level 3.6 mmol/L (3.5-5.1) Chloride Level 106 mmol/L (98-107) Carbon Dioxide Level 22 mmol/L (21-32) Anion Gap 13 (6-14) Blood Urea Nitrogen 6 mg/dL (7-20) Creatinine 0.7 mg/dL (0.6-1.0) Estimated GFR (Cockcroft-Gault) 102.0 BUN/Creatinine Ratio 9 (6-20) Glucose Level 83 mg/dL (70-99) Calcium Level 8.1 mg/dL (8.5-10.1) Total Bilirubin 0.7 mg/dL (0.2-1.0) Aspartate Amino Transf (AST/SGOT) 60 U/L (15-37) Alanine Aminotransferase (ALT/SGPT) 102 U/L (14-59) Alkaline Phosphatase 118 U/L (46-116) Total Protein 6.0 g/dL (6.4-8.2) Albumin 3.2 g/dL (3.4-5.0) Albumin/Globulin Ratio 1.1 (1.0-1.7) Medications Current Medications Dicyclomine HCl (Bentyl) 10 mg PRN QID PRN PO ABDOMINAL PAIN Last administered on 06/27/18 23:18; Start 06/27/18 at 21:00 Zolpidem Tartrate (Ambien) 5 mg PRN QHS PRN PO INSOMNIA Last administered on 20:12; Start 06/27/18 at 21:00 Erythromycin (E-Mycin) 250 mg BID PO Last administered on 06/30/18 08:55; Start 06/27/18 at 22:00 Prochlorperazine Maleate (Compazine) 10 mg BID PO Last administered on 08:55; Start 06/27/18 at 22:00 Fentanyl Citrate (Fentanyl 2ml Vial) 50 mcg PRN Q2HR PRN IV PAIN Last administered on 06/30/18 04:16; Start 06/27/18 at 21:00 Oxycodone/ Acetaminophen (Percocet 5/325) 1 tab PRN Q4HRS PRN PO PAIN Last administered on 06/30/18 09:01; Start 06/27/18 at 21:00 Metoclopramide HCl (Reglan) 10 mg PRN BFRMEALHC PRN PO NAUSEA/VOMITING 2ND CHOICE Last administered on 06/29/18 20:12; Start 06/27/18 at 21:00 Ondansetron HCl (Zofran) 4 mg PRN Q6HRS PRN IV NAUSEA/VOMITING 1ST CHOICE Last administered on 06/29/18 12:42; Start 06/27/18 at 21:00 Ondansetron HCl (Zofran Odt) 4 mg PRN Q6HRS PRN PO NAUSEA/VOMITING 1ST CHOICE; Start 06/27/18 at 21:00 Prochlorperazine Edisylate (Compazine) 10 mg PRN Q6HRS PRN IV NAUSEA/VOMITING 2ND CHOICE Last administered on 06/30/18at 03:50; Start 06/27/18 at 21:00 Sodium Chloride 1,000 ml @ 100 mls/hr 1X ONCE IV Last administered on at 22:22; Start 06/27/18 at 21:30; Stop 06/28/18 at 07:29; Status DC Sodium Chloride 1,000 ml @ 100 mls/hr 1X ONCE IV Last administered on at 12:10; Start 06/28/18 at 12:30; Stop 06/28/18 at 22:29; Status DC Famotidine (Pepcid) 20 mg BID PO Last administered on 06/30/18at 08:55; Start at 21:00 Multi-Ingredient Mouthwash/Gargle (Gi Cocktail) 20 ml PRN QID PRN PO abd pain; Start 06/29/18 at 15:15; Stop 06/29/18 at 16:19; Status DC Sucralfate (Carafate) 1 gm BIDAC PO Last administered on 06/30/18at 08:54; Start 06/29/18 at 16:30 Polyethylene Glycol (miraLAX PACKET) 17 gm PRN DAILY PRN PO CONSTIPATION; Start 06/29/18 at 15:15 Diphenhydramine HCl (Benadryl) 25 mg PRN Q6HRS PRN PO ITCHING Last administered on 06/29/18at 16:32; Start 06/29/18 at 16:15 Sodium Chloride 1,000 ml @ 100 mls/hr 1X ONCE IV Last administered on at 19:19; Start 06/29/18 at 16:45; Stop 06/30/18 at 02:44; Status DC Active Scripts Active Dicyclomine Hcl 10 Mg Capsule 10 Mg PO QID PRN Reported Ambien (Zolpidem Tartrate) 5 Mg Tablet 5 Mg PO PRN QHS PRN Compazine (Prochlorperazine Maleate) 10 Mg Tablet 10 Mg PO BID Erythromycin Stearate 250 Mg Tablet 250 Mg PO BID Vitals/I & O Vital Sign - Last 24 Hours 206/29/18 06/29/18 06/29/18 11:00 12:45 12:57 14:36 Temp 98.3 98.6 98.3 98.6 Pulse 80 96 Resp 18 18 B/P (MAP) 121/68 (85) 106/54 (71) Pulse Ox 98 98 O2 Delivery Room Air Room Air Room Air Room Air 06/29/18 06/29/18 06/29/18 06/29/18 16:32 19:00 20:00 20:12 Temp 98.8 98.8 Pulse 78 Resp 17 B/P (MAP) 112/72 (85) Pulse Ox 100 O2 Delivery Room Air Room Air Room Air Room Air 06/29/18 06/29/18 06/30/18 06/30/18 21:21 23:00 03:00 04:16 Temp 98.3 98.1 98.3 98.1 Pulse 58 95 Resp 16 17 B/P (MAP) 133/60 (84) 104/62 (76) Pulse Ox 99 97 O2 Delivery Room Air Room Air Room Air Room Air 06/30/18 06/30/18 06/30/18 04:52 07:00 09:01 Temp 97.9 97.9 Pulse 101 Resp 18 B/P (MAP) 122/69 (86) Pulse Ox 97 O2 Delivery Room Air Room Air Room Air Intake and Output 06/29/18 06/29/18 06/30/18 14:59 22:59 06:59 Output Total 0 ml Balance 0 ml MINO TIDWELL MD Jun 30, 2018 10:32
--- NOTE | 2018-06-30 10:54 | PDOC ---
Subjective: Subjective: Feels better today. Tolerating some more PO - drinking broth and eating pudding. Percocet helps abd pain. Would like to go home today. Objective: Vital Signs: Vital Signs Date Time Temp Pulse Resp B/P (MAP) Pulse Ox O2 Delivery O2 Flow Rate FiO2 06/30/18 09:01 Room Air 06/30/18 07:00 97.9 101 18 122/69 (86) 97 97.9 Labs: Laboratory Tests Test 06/30/18 04:30 White Blood Count 3.7 x10^3/uL Red Blood Count 3.47 x10^6/uL Hemoglobin 10.9 g/dL Hematocrit 31.6 % Mean Corpuscular Volume 91 fL Mean Corpuscular Hemoglobin 32 pg Mean Corpuscular Hemoglobin Concent 35 g/dL Red Cell Distribution Width 12.6 % Platelet Count 173 x10^3/uL Sodium Level 141 mmol/L Potassium Level 3.6 mmol/L Chloride Level 106 mmol/L Carbon Dioxide Level 22 mmol/L Anion Gap 13 Blood Urea Nitrogen 6 mg/dL Creatinine 0.7 mg/dL Estimated GFR (Cockcroft-Gault) 102.0 BUN/Creatinine Ratio 9 Glucose Level 83 mg/dL Calcium Level 8.1 mg/dL Total Bilirubin 0.7 mg/dL Aspartate Amino Transf (AST/SGOT) 60 U/L Alanine Aminotransferase (ALT/SGPT) 102 U/L Alkaline Phosphatase 118 U/L Total Protein 6.0 g/dL Albumin 3.2 g/dL Albumin/Globulin Ratio 1.1 PE: GEN: NAD LUNGS: CTAB HEART: RRR ABD: less epigastric discomfort NEURO/PSYCH: A & O 3 A/P: Recurrent upper abd pain - better, has Bentyl and Percocet, also Miralax if needed Gastroparesis - on e-mycin, H2 madeline, and Carafate - looks like also received Reglan PRN Transaminitis - fluctuating - AST and ALT improved overall, Alk Phos mildly elevated today -- GRICEL pending. Will refer for ERCP w/ FIDELINA as outpt. DC per primary. MALORIE BURKS Jun 30, 2018 10:54
[2018-06-30 11:00] VITALS: BP 126/76
--- NOTE | 2018-06-30 11:36 | PDOC3 ---
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 Grayson. , CONSULTED IV FLUID SUPPORT home meds Diarrhea-abated Supportive meds Dw mother at bedside 06/28 NO IMPROVEMENT, STILL VOMITED THIS AM 06/29 SLOW PROGRESS MAY BENEFIT FOR J-TUBE if continues to decline, poor intake little to eat, vomited all of dinner last night 06/30 eating better, plan ERCP outpt would like to go home today Vitals Vitals Vital Signs Date Time Temp Pulse Resp B/P (MAP) Pulse Ox O2 Delivery O2 Flow Rate FiO2 06/30/18 09:01 Room Air 06/30/18 07:00 97.9 101 18 122/69 (86) 97 97.9 Physical Exam General: Alert, Oriented X3, Cooperative, No acute distress, mild distress Heart: Regular rate, Normal S1, Normal S2 Lungs: Clear Abdomen: Normal bowel sounds, Soft, No tenderness, No hepatosplenomegaly, No masses Extremities: No clubbing, No cyanosis, No edema, Normal pulses, No tenderness/ swelling Skin: No rashes, No breakdown, No significant lesion Labs LABS REASON: upper abd pain off and on for several years PROCEDURE: KUB AP view of the abdomen Clinical indications: Upper abdominal pain off and on for several years. FINDINGS: Mild fecal retention is seen throughout the colon. No obstructive bowel pattern is evident. Cholecystectomy clips are evident. Umbilical jewelry is evident. The osseous structures are intact. IMPRESSION: No acute radiographic abnormality. Brief Hospital Course Ms. Simmons is a 23 old [sex] who presented with [ gastroparesis] CONDITION AT DISCHARGE: Improved Discharge Medications Current Medications Dicyclomine HCl (Bentyl) 10 mg PRN QID PRN PO ABDOMINAL PAIN Last administered on 06/27/18at 23:18; Start 06/27/18 at 21:00 Zolpidem Tartrate (Ambien) 5 mg PRN QHS PRN PO INSOMNIA Last administered on at 20:12; Start 06/27/18 at 21:00 Erythromycin (E-Mycin) 250 mg BID PO Last administered on 06/30/18 08:55; Start 06/27/18 at 22:00 Prochlorperazine Maleate (Compazine) 10 mg BID PO Last administered on 08:55; Start 06/27/18 at 22:00 Fentanyl Citrate (Fentanyl 2ml Vial) 50 mcg PRN Q2HR PRN IV PAIN Last administered on 06/30/18 04:16; Start 06/27/18 at 21:00 Oxycodone/ Acetaminophen (Percocet 5/325) 1 tab PRN Q4HRS PRN PO PAIN Last administered on 06/30/18 09:01; Start 06/27/18 at 21:00 Metoclopramide HCl (Reglan) 10 mg PRN BFRMEALHC PRN PO NAUSEA/VOMITING 2ND CHOICE Last administered on 06/29/18 20:12; Start 06/27/18 at 21:00 Ondansetron HCl (Zofran) 4 mg PRN Q6HRS PRN IV NAUSEA/VOMITING 1ST CHOICE Last administered on 06/29/18 12:42; Start 06/27/18 at 21:00 Ondansetron HCl (Zofran Odt) 4 mg PRN Q6HRS PRN PO NAUSEA/VOMITING 1ST CHOICE; Start 06/27/18 at 21:00 Prochlorperazine Edisylate (Compazine) 10 mg PRN Q6HRS PRN IV NAUSEA/VOMITING 2ND CHOICE Last administered on 06/30/18 03:50; Start 06/27/18 at 21:00 Sodium Chloride 1,000 ml @ 100 mls/hr 1X ONCE IV Last administered on 22:22; Start 06/27/18 at 21:30; Stop 06/28/18 at 07:29; Status DC Sodium Chloride 1,000 ml @ 100 mls/hr 1X ONCE IV Last administered on 12:10; Start 06/28/18 at 12:30; Stop 06/28/18 at 22:29; Status DC Famotidine (Pepcid) 20 mg BID PO Last administered on 06/30/18 08:55; Start at 21:00 Multi-Ingredient Mouthwash/Gargle (Gi Cocktail) 20 ml PRN QID PRN PO abd pain; Start 06/29/18 at 15:15; Stop 06/29/18 at 16:19; Status DC Sucralfate (Carafate) 1 gm BIDAC PO Last administered on 06/30/18at 08:54; Start 06/29/18 at 16:30 Polyethylene Glycol (miraLAX PACKET) 17 gm PRN DAILY PRN PO CONSTIPATION; Start 06/29/18 at 15:15 Diphenhydramine HCl (Benadryl) 25 mg PRN Q6HRS PRN PO ITCHING Last administered on 06/29/18at 16:32; Start 06/29/18 at 16:15 Sodium Chloride 1,000 ml @ 100 mls/hr 1X ONCE IV Last administered on at 19:19; Start 06/29/18 at 16:45; Stop 06/30/18 at 02:44; Status DC Active Scripts Active Dicyclomine Hcl 10 Mg Capsule 10 Mg PO QID PRN Reported Ambien (Zolpidem Tartrate) 5 Mg Tablet 5 Mg PO PRN QHS PRN Compazine (Prochlorperazine Maleate) 10 Mg Tablet 10 Mg PO BID Erythromycin Stearate 250 Mg Tablet 250 Mg PO BID Vital Signs Vital Signs Date Time Temp Pulse Resp B/P (MAP) Pulse Ox O2 Delivery O2 Flow Rate FiO2 06/30/18 09:01 Room Air 06/30/18 07:00 97.9 101 18 122/69 (86) 97 97.9 Labs Laboratory Tests Test 06/29/18 06:00 06/30/18 04:30 White Blood Count 3.6 x10^3/uL (4.0-11.0) 3.7 x10^3/uL (4.0-11.0) Red Blood Count 3.65 x10^6/uL (3.50-5.40) 3.47 x10^6/uL (3.50-5.40) Hemoglobin 11.4 g/dL (12.0-15.5) 10.9 g/dL (12.0-15.5) Hematocrit 33.4 % (36.0-47.0) 31.6 % (36.0-47.0) Mean Corpuscular Volume 92 fL (79-100) 91 fL (79-100) Mean Corpuscular Hemoglobin 31 pg (25-35) 32 pg (25-35) Mean Corpuscular Hemoglobin Concent 34 g/dL (31-37) 35 g/dL (31-37) Red Cell Distribution Width 12.8 % (11.5-14.5) 12.6 % (11.5-14.5) Platelet Count 184 x10^3/uL (140-400) 173 x10^3/uL (140-400) Sodium Level 140 mmol/L (136-145) 141 mmol/L (136-145) Potassium Level 3.7 mmol/L (3.5-5.1) 3.6 mmol/L (3.5-5.1) Chloride Level 106 mmol/L (98-107) 106 mmol/L (98-107) Carbon Dioxide Level 24 mmol/L (21-32) 22 mmol/L (21-32) Anion Gap 10 (6-14) 13 (6-14) Blood Urea Nitrogen 5 mg/dL (7-20) 6 mg/dL (7-20) Creatinine 0.7 mg/dL (0.6-1.0) 0.7 mg/dL (0.6-1.0) Estimated GFR (Cockcroft-Gault) 102.0 102.0 BUN/Creatinine Ratio 7 (6-20) 9 (6-20) Glucose Level 86 mg/dL (70-99) 83 mg/dL (70-99) Calcium Level 8.3 mg/dL (8.5-10.1) 8.1 mg/dL (8.5-10.1) Total Bilirubin 0.6 mg/dL (0.2-1.0) 0.7 mg/dL (0.2-1.0) Aspartate Amino Transf (AST/SGOT) 88 U/L (15-37) 60 U/L (15-37) Alanine Aminotransferase (ALT/SGPT) 128 U/L (14-59) 102 U/L (14-59) Alkaline Phosphatase 115 U/L (46-116) 118 U/L (46-116) Total Protein 6.2 g/dL (6.4-8.2) 6.0 g/dL (6.4-8.2) Albumin 3.3 g/dL (3.4-5.0) 3.2 g/dL (3.4-5.0) Albumin/Globulin Ratio 1.1 (1.0-1.7) 1.1 (1.0-1.7) Cortisol AM Sample 17.8 ug/dL (4.3-22.4) Cytomegalovirus IgG Antibody <0.60 U/mL (0.00-0.59) Cytomegalovirus IgM Antibody <30.0 AU/mL (0.0-29.9) Jakob-Parekh Virus Capsid Ag IgG Ab 236.0 U/mL (0.0-17.9) Jakob-Parekh Virus Capsid Ag IgM Ab <36.0 U/mL (0.0-35.9) Jakob-Parekh Early Antigen IgG Ab 59.8 U/mL (0.0-8.9) Jakob-Parekh Nuc Assoc Ag IgG Index >600.0 U/mL (0.0-17.9) Jakob-Parekh Virus Interpretation Comment (.) Hepatitis A IgM Antibody Nonreactive (Nonreactive) Hepatitis B Surface Antigen Nonreactive (Nonreactive) Hepatitis B Core IgM Antibody Nonreactive (Nonreactive) Hepatitis C IgG Antibody Nonreactive (Nonreactive) Laboratory Tests Test 06/30/18 04:30 White Blood Count 3.7 x10^3/uL (4.0-11.0) Red Blood Count 3.47 x10^6/uL (3.50-5.40) Hemoglobin 10.9 g/dL (12.0-15.5) Hematocrit 31.6 % (36.0-47.0) Mean Corpuscular Volume 91 fL (79-100) Mean Corpuscular Hemoglobin 32 pg (25-35) Mean Corpuscular Hemoglobin Concent 35 g/dL (31-37) Red Cell Distribution Width 12.6 % (11.5-14.5) Platelet Count 173 x10^3/uL (140-400) Sodium Level 141 mmol/L (136-145) Potassium Level 3.6 mmol/L (3.5-5.1) Chloride Level 106 mmol/L (98-107) Carbon Dioxide Level 22 mmol/L (21-32) Anion Gap 13 (6-14) Blood Urea Nitrogen 6 mg/dL (7-20) Creatinine 0.7 mg/dL (0.6-1.0) Estimated GFR (Cockcroft-Gault) 102.0 BUN/Creatinine Ratio 9 (6-20) Glucose Level 83 mg/dL (70-99) Calcium Level 8.1 mg/dL (8.5-10.1) Total Bilirubin 0.7 mg/dL (0.2-1.0) Aspartate Amino Transf (AST/SGOT) 60 U/L (15-37) Alanine Aminotransferase (ALT/SGPT) 102 U/L (14-59) Alkaline Phosphatase 118 U/L (46-116) Total Protein 6.0 g/dL (6.4-8.2) Albumin 3.2 g/dL (3.4-5.0) Albumin/Globulin Ratio 1.1 (1.0-1.7) Allergies Allergies Coded Allergies Type Severity Reaction Last Updated Verified morphine Allergy Intermediate 03/23/18 Yes Disposition/Orders: D/C to Home Patient Instructions d/c planning and chart review 37 min MINO TIDWELL MD Jun 30, 2018 11:36
[2018-06-30] MEDS ORDERED: FAMO20TA5 PO (11:44)
[2018-06-30] MEDS ORDERED: SUCR1ORA5 PO (11:44)
--- NOTE | 2018-06-30 11:46 | DISCH ---
DISCHARGE INSTRUCTIONS Condition on Discharge Condition on Discharge: Stable Activity After Discharge Activity Instructions for Disc: Resume previous activity, Activity as tolerated Lifting Instructions after Dis: No heavy lifting, No pulling or pushing Exercise Instruction after Dis: Walk 10 min, 3 x per day Driving Instructions after Dis: Do not drive today Weight Bearing Status after Di: Full weight bearing Diet after Discharge Diet after Discharge: GI Soft Liquid Texture: Thin Liquid Wound Incision Care Wound/Incision Care: No wound care needed Checks after Discharge Checks after discharge: Check blood press - daily Contacting the DR. after DC Call your doctor for: If your condition worsens MINO TIDWELL MD Jun 30, 2018 11:46
--- NOTE | 2018-06-30 12:45 | NUR ---
Removed IV from Right FA, with no complications, well-tolerated. Patient prepared to discharge to home with significant other.
--- NOTE | 2018-06-30 13:07 | NUR ---
SW following. Discussed with RN, RN advised no SW needs. Discharge order in for pt to discharge home with self care. No further SW needs.
[2018-06-30] MEDS: METOCLOPRAMIDE 10 MG TABLET. PO PRN ×2 (14:05→14:12)
--- NOTE | 2018-06-30 16:21 | NUR ---
Discharge Note: RAMONE GARCIA [address] Discharge instructions and discharge home medications reviewed with Patient and a copy given. All questions have been answered and understanding verbalized. The following instructions and handouts were given: famotadine, sucralfate, abd pain, infectious mononucleosis, gastroparesis. Discontinued lines and drains: peripheral IV, intact. Patient discharged to home with self-care via personal vehicle. Pt dressed herself and packed her belongings before leaving unit stable and walking.
[2018-06-30 20:12] LABS: ANA INTERP Negative (.)
== END 2018-06-30 14:50 | disposition home or self-care (01) | DRG 866 ==
LOC: 5 SOUTH 18:09
PROVIDERS: ADMIT Internal Medicine; ATTEND Internal Medicine
DX: B34.9 Viral infection, unspecified (principal); K92.0 Hematemesis; K31.84 Gastroparesis; K21.9 Gastro-esophageal reflux disease without esophagitis; K59.00 Constipation, unspecified; R74.0 Nonspecific elevation of levels of transaminase and lactic acid dehydrogenase [LDH]; Z90.49 Acquired absence of other specified parts of digestive tract; Z79.899 Other long term (current) drug therapy
CPT/HCPCS: 36415; 70450; 74018; 76705; 80053; 82533; 82607; 83540; 83550; 83690; 85025; 85027; 85045; 86038; 86644; 86645; 86663; 86664; 86705; 86709; 86803; 87340; J0780; J2405; J3010; J7030; J8597; Q0163; Q0164

== ENCOUNTER → 2020-09-17 | Outpatient (CLI) | payer OTHER ==
[~2020-09-17] MED LIST changes: +FAMO20TA5 PO; -MELA3TAB2 PO; +MELA3TAB4 PO; +PROC10TA57 PO; +SUCR1ORA5 PO; +ZOLP5TAB PO
--- NOTE | 2020-09-17 09:13 | RAD ---
Exam Date: 09/17/2020 8:41 AM US ABDOMEN COMPLETE Indication: Reason: ABD PAIN/GASTROPARESIS. / Spl. Instructions: / History: TECHNIQUE: Multiple longitudinal and transverse sonographic images of the abdomen are submitted for interpretation. COMPARISON: June 28, 2018 FINDINGS: The liver is normal in size and echogenicity. The portal vein is patent, with hepatopetal flow. N o focal intrahepatic abnormality is seen. Status post cholecystectomy. There is no biliary ductal dilatation, with the common bile duct measur ing 2 mm. The spleen is normal in size and echogenicity. The visualized abdominal aorta, inferior vena cava an d pancreas are within normal limits. There is no upper abdominal ascites. The kidneys are normal in appearance, with the right kidney measuring 10.6 cm and the left kidney measuring 11.5 cm. IMPRESSION: Status post cholecystectomy. Otherwise normal abdominal ultrasound. Electronically signed by: Armando Boateng MD (09/17/2020 9:11 AM) [facility]
== END ==
LOC: US 09:25
PROVIDERS: ATTEND Internal Medicine Gastroenterology
DX: K31.84 Gastroparesis (principal); Z90.49 Acquired absence of other specified parts of digestive tract
CPT/HCPCS: 76700

== ENCOUNTER 2021-06-24 18:26 | Emergency (ER) | payer OTHER ==
[~2021-06-24] VITALS: Ht 152.4 cm; Wt 67.3 kg
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
[2021-06-24 19:44] LABS: BASO % 1 % (0-3); EOS # 0.1 x10^3/uL (0.0-0.7); EOS % 1 % (0-3); LYMPH # 2.1 x10^3/uL (1.0-4.8); LYMPH % 29 % (24-48); MEAN CORPUSCULAR HEMOGLOBIN 30 pg (25-35); MEAN CORPUSCULAR HGB CONC 33 g/dL (31-37); MEAN CORPUSCULAR VOLUME 89 fL (79-100); MONO # 0.5 x10^3/uL (0.0-1.1); MONO % 7 % (0-9); NEUT # 4.7 x10^3/uL (1.8-7.7); NEUT % 63 % (31-73); PLATELET COUNT 338 x10^3/uL (140-400); RED BLOOD COUNT 4.37 x10^6/uL (3.50-5.40); RED CELL DISTRIBUTION WIDTH 13.4 % (11.5-14.5); WHITE BLOOD COUNT 7.5 x10^3/uL (4.0-11.0)
[2021-06-24 19:55] LABS: CALCIUM 8.8 mg/dL (8.5-10.1); CREATININE 0.7 mg/dL (0.6-1.0); GFR 99.6; POTASSIUM 3.8 mmol/L (3.5-5.1)
[2021-06-24 20:01] LABS: ALBUMIN/GLOBULIN RATIO 1.1 (1.0-1.7); TOTAL BILIRUBIN 0.2 mg/dL (0.2-1.0); TOTAL PROTEIN 7.7 g/dL (6.4-8.2)
[2021-06-24 20:02] LABS: ACETAMIN < 2 mcg/ml (10-30); ETHANOL < 10 mg/dL (0-10); SALIC 0.7 mg/dL (2.8-20.0)
[2021-06-24 21:11] LABS: U PREG PATIENT NEGATIVE (NEG)
[2021-06-24 21:14] LABS: BARBITURATES NEG (NEG); BENZODIAZEPINES POS (NEG); CANNABINOIDS NEG (NEG); COCAINE NEG (NEG); METHADONE NEG (NEG); OPIATES NEG (NEG); PHENCYCLIDINE NEG (NEG)
[2021-06-24 21:18] LABS: AMPHETAMINE/METHAMPHETAMINE NEG (NEG)
[2021-06-25 11:42] VITALS: BP 104/68
== END 2021-06-25 13:05 ==
LOC: ER 18:26
DX: R45.851 Suicidal ideations (principal); Z20.822 Contact with and (suspected) exposure to COVID-19; Z87.891 Personal history of nicotine dependence; Z90.49 Acquired absence of other specified parts of digestive tract; Z88.4 Allergy status to anesthetic agent; Z88.5 Allergy status to narcotic agent
CPT/HCPCS: 80053; 80307; 80329; 81025; 85025; 87426; 99285; G0480; U0003